=== PATIENT | male | born 1965 | race Caucasian/White ===

== ENCOUNTER 2018-09-03 22:11 | Emergency (ER) | payer OTHER ==
[~2018-09-03] VITALS: Ht 180.3 cm; Wt 126.1 kg
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
[2018-09-03 22:39] LABS: HEMOGLOBIN 14.4 G/DL (13.3-17.7); MEAN PLATELET VOLUME 10.5 FL (7.4-10.4); RED CELL DISTRIBUTION WIDTH 13.3 % (10.0-14.5); WHITE BLOOD COUNT 8.4 10^3/uL (4.3-11.0)
[2018-09-03 22:53] LABS: ALANINE AMINOTRANSFERASE 26 U/L (0-55); ALBUMIN 3.9 GM/DL (3.2-4.5); ALKALINE PHOSPHATASE 52 U/L (40-136); BILIRUBIN,DIRECT 0.2 MG/DL (0.0-0.3); BILIRUBIN,INDIRECT 0.2 MG/DL; BILIRUBIN,TOTAL 0.4 MG/DL (0.1-1.0); BUN/CREATININE RATIO 18; CALCIUM 8.9 MG/DL (8.5-10.1); CARBON DIOXIDE 19 MMOL/L (21-32); CHLORIDE 112 MMOL/L (98-107); CREATININE SERUM 0.84 MG/DL (0.60-1.30); GFR ESTIMATED > 60; GLUCOSE 92 MG/DL (70-105); POTASSIUM 3.8 MMOL/L (3.6-5.0); SODIUM 142 MMOL/L (135-145); TOTAL PROTEIN 6.4 GM/DL (6.4-8.2)
[2018-09-03] MEDS ORDERED: fentaNYL INJECTION 100 MCG/2 ML AMP IVP ONE ×2 (23:00→23:30)
[2018-09-03] MEDS ORDERED: RX-HYDROCODONE/APAP 5/325 MG #4 TAB PK PO PRN (23:30)
[2018-09-03] MEDS ORDERED: DIAZEPAM 5 MG (VALIUM) TABLET PO ONE (23:30)
[2018-09-03] MEDS ORDERED: HYDROcodone/APAP 5 MG/325 MG (LORTAB) TAB PO ONE (23:30)
[2018-09-03] MEDS ORDERED: TRAM-42 PO (23:40)
[2018-09-03] MEDS ORDERED: CYCL10TA9 PO (23:40)
[2018-09-03] MEDS ORDERED: METH4TAB PO (23:40)
[2018-09-04 00:25] LABS: BILIRUBIN,URINE NEGATIVE (NEGATIVE); CLARITY,URINE CLEAR; COLOR,URINE YELLOW; GLUCOSE, URINE (UA) NEGATIVE (NEGATIVE); KETONES,URINE NEGATIVE (NEGATIVE); LEUKOCYTE ESTERASE ,URINE NEGATIVE (NEGATIVE); NITRITE,URINE NEGATIVE (NEGATIVE); PH,URINE 5 (5-9); PROTEIN,URINE 1+ (NEGATIVE); UROBILINOGEN,URINE NORMAL (NORMAL)
[2018-09-04 00:31] LABS: BACTERIA,URINE TRACE /HPF; HYALINE CASTS, URINE RARE /LPF; SQUAMOUS EPITHELIAL CELL,UR RARE /HPF; WBC,URINE RARE /HPF
[2018-09-04 00:32] LABS: AMPHETAMINE SCREEN, URINE NEGATIVE (NEGATIVE); BARBITURATE SCREEN URINE NEGATIVE (NEGATIVE); BENZODIAZEPINES SCREEN URINE NEGATIVE (NEGATIVE); CANNABINOID SCREEN, URINE NEGATIVE (NEGATIVE); COCAINE SCREEN URINE NEGATIVE (NEGATIVE); METHADONE STAT NEGATIVE (NEGATIVE); METHAMPHETAMINE SCREEN URINE S NEGATIVE (NEGATIVE); OPIATE SCREEN URINE NEGATIVE (NEGATIVE); OXYCODONE STAT NEGATIVE (NEGATIVE); PROPOXYPHENE STAT NEGATIVE (NEGATIVE); TRICYCLIC ANTIDEPRESSANTS SCRE NEGATIVE (NEGATIVE)
[2018-09-04 06:04] VITALS: BP 130/81
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
== END 2018-09-04 00:45 | disposition home or self-care (01) ==
LOC: ER 22:13
DX: S09.90XA Unspecified injury of head, initial encounter (principal); S16.1XXA Strain of muscle, fascia and tendon at neck level, initial encounter; M54.2 Cervicalgia; G89.29 Other chronic pain; R40.2142 Coma scale, eyes open, spontaneous, at arrival to emergency department; R40.2252 Coma scale, best verbal response, oriented, at arrival to emergency department; R40.2362 Coma scale, best motor response, obeys commands, at arrival to emergency department; F17.210 Nicotine dependence, cigarettes, uncomplicated; Z79.52 Long term (current) use of systemic steroids; V47.6XXA Car passenger injured in collision with fixed or stationary object in traffic accident, initial encounter; Y92.410 Unspecified street and highway as the place of occurrence of the external cause
CPT/HCPCS: 36415; 70450; 71045; 72125; 72128; 72131; 72170; 80048; 80076; 80306; 80320; 81000; 85027

== ENCOUNTER → 2018-09-15 | Outpatient (CLI) | payer OTHER ==
[~2018-09-15] MED LIST: CYCL10TA9 PO; METH4TAB PO; TRAM-42 PO
--- NOTE | 2018-09-15 12:14 | Diagnostic Imaging Report ---
Indication: Low back pain and L1 compression fracture. Time of exam: 11:41 AM Correlation is made with CT of the thoracic and lumbar spine from 09/03/2018. Curvature is normal. Grade 1 spondylolisthesis of L5 on S1 is again seen. Chronic compression fracture deformity of the L1 vertebral body appears similar to the recent CT. Remaining lumbar vertebrae demonstrate normal stature. Disc spaces are fairly well-maintained apart from some degenerative disc disease L1-2 and L5-S1 levels. Pars defects at L5-S1 are again noted. Impression: Chronic compression fracture deformity at L1 with spondylolysis and spondylolisthesis of L5 on S1. This appears similar to CT study from 09/03/2018. Dictated by: Dictated on workstation # [id number]
== END ==
LOC: RAD FS 11:33
PROVIDERS: ATTEND Family Medicine
DX: M48.56XA Collapsed vertebra, not elsewhere classified, lumbar region, initial encounter for fracture (principal); M47.816 Spondylosis without myelopathy or radiculopathy, lumbar region; M43.17 Spondylolisthesis, lumbosacral region
CPT/HCPCS: 72100

== ENCOUNTER 2018-10-07 10:53 | Emergency (ER) | payer SELFPAY ==
[~2018-10-07] VITALS: Ht 180.3 cm; Wt 122.5 kg
--- NOTE | 2018-10-07 11:50 | Diagnostic Imaging Report ---
INDICATION: Shortness of breath. TIME OF EXAM: 11:19 AM Comparison is made with prior exam from 09/03/2018. FINDINGS: The heart size is normal. There may be minimal infiltrate or atelectasis in the left base. Otherwise lungs are clear. There is no effusion or pneumothorax. Pulmonary vascularity is normal. IMPRESSION: Minimal left base infiltrate or atelectasis. Dictated by: Dictated on workstation # [id number]
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
[2018-10-07 12:07] LABS: HEMATOCRIT 47 % (40-54); HEMOGLOBIN 15.4 G/DL (13.3-17.7); MEAN CORPUSCULAR HEMOGLOBIN 29 PG (25-34); MEAN CORPUSCULAR VOLUME 89 FL (80-99); WHITE BLOOD COUNT 16.7 10^3/uL (4.3-11.0)
[2018-10-07 12:08] LABS: BASOPHILS % (AUTO) 0 % (0-10); EOSINOPHILS % (AUTO) 1 % (0-10); LYMPHOCYTES # (AUTO) 2.4 X 10^3 (1.0-4.0); LYMPHOCYTES % (AUTO) 15 % (12-44); MEAN CORPUSCULAR HGB CONC 33 G/DL (32-36); MEAN PLATELET VOLUME 10.3 FL (7.4-10.4); MONOCYTES # (AUTO) 1.4 X 10^3 (0.0-1.0); MONOCYTES % (AUTO) 8 % (0-12); NEUTROPHILS # (AUTO) 12.6 X 10^3 (1.8-7.8); NEUTROPHILS % (AUTO) 76 % (42-75); PLATELET COUNT 349 10^3/uL (130-400); RED CELL DISTRIBUTION WIDTH 12.5 % (10.0-14.5)
[2018-10-07 12:09] LABS: BASOPHILS # (AUTO) 0.1 10^3/uL (0.0-0.1); EOSINOPHILS # (AUTO) 0.2 10^3/uL (0.0-0.3)
[2018-10-07 12:10] LABS: BUN/CREATININE RATIO 21; CALCIUM 9.5 MG/DL (8.5-10.1); CARBON DIOXIDE 21 MMOL/L (21-32); CHLORIDE 100 MMOL/L (98-107); GFR ESTIMATED > 60; GLUCOSE 133 MG/DL (70-105); POTASSIUM 4.1 MMOL/L (3.6-5.0); SODIUM 139 MMOL/L (135-145)
[2018-10-07 12:11] LABS: ALANINE AMINOTRANSFERASE 19 U/L (0-55); ALBUMIN 4.3 GM/DL (3.2-4.5); ALKALINE PHOSPHATASE 79 U/L (40-136); BILIRUBIN,TOTAL 0.6 MG/DL (0.1-1.0); TOTAL PROTEIN 7.9 GM/DL (6.4-8.2)
[2018-10-07] MEDS ORDERED: NAPR-1071 PO ×2 (12:13→12:21)
[2018-10-07] MEDS ORDERED: AMOX500C2 PO ×2 (12:13→12:21)
[2018-10-07 12:32] VITALS: BP 115/99
[2018-10-07 12:32] LABS: BAND NEUTROPHILS 4 %; LYMPHOCYTES % (MANUAL) 16 %; MONOCYTES % (MANUAL) 5 %; NEUTROPHILS % (MANUAL) 75 %; RBC MORPH NORMAL
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
== END 2018-10-07 12:32 | disposition home or self-care (01) ==
LOC: EDUNIT# 10:53 → ER FS 10:54
DX: J40 Bronchitis, not specified as acute or chronic (principal); S20.211D Contusion of right front wall of thorax, subsequent encounter; J98.11 Atelectasis; Z79.52 Long term (current) use of systemic steroids; Z98.890 Other specified postprocedural states; V89.2XXD Person injured in unspecified motor-vehicle accident, traffic, subsequent encounter
CPT/HCPCS: 36415; 71046; 80053; 83605; 85007; 85027; 87040

== ENCOUNTER 2019-06-25 20:09 | Emergency (ER) | payer SELFPAY ==
[~2019-06-25] VITALS: Ht 180.3 cm; Wt 126.6 kg
[~2019-06-25 20:09] MED LIST changes: +AMOX500C2 PO; +NAPR-1071 PO
--- NOTE | 2019-06-25 20:17 | ED Upper Extremity ---
General Stated Complaint: LEFT HAND INJURY Source: patient Exam Limitations: no limitations History of Present Illness Date Seen by Provider: Jun 25, 2019 Time Seen by Provider: 20:17 Initial Comments 53-year-old male presents to have his hand evaluated.y. Patient had a middle finger amputation revision done at the [facility] and [place]. Patient's re vision was 5 days ago and he had a drain tube placed.. Patient's drain tube came out today and he wanted to have it reevaluated since he was unable to contact his surgeon. Patient denies any other symptoms Allergies and Home Medications Allergies Coded Allergies: No Known Drug Allergies (Unverified , 09/03/18) Home Medications Albuterol Sulfate 2.5 Mg/3 Ml Vial.neb, 2.5 MG INH Q4H PRN for WHEEZING Prescribed by: NORA ZAPATA on 06/25/192054 Amoxicillin 500 Mg Capsule, 500 MG PO TID Prescribed by: MIMI VAUGHN on 10/07/18 1221 Cyclobenzaprine HCl 10 Mg Tablet, 10 MG PO Q8H Prescribed by: TWYLA VARGAS on 09/03/18 2340 Methylprednisolone 4 Mg Tab.ds.pk, 4 MG PO UD Prescribed by: TWYLA VARGAS on 09/03/18 234 Naproxen 500 Mg Tablet, 500 MG PO BID Prescribed by: MIMI VAUGHN on 10/07/18 1221 Tramadol HCl 50 Mg Tablet, 50 MG PO Q4H Prescribed by: TWYLA VARGAS on 09/03/18 2340 Patient Home Medication List Home Medication List Reviewed: Yes Review of Systems Constitutional: No chills, No fever Respiratory: dyspnea on exertion Cardiovascular: no symptoms reported Gastrointestinal: no symptoms reported Genitourinary: no symptoms reported Musculoskeletal: see HPI Skin: see HPI Past Agdpdbz-Jfsckb-Yhtyrk Hx Past Med/Social Hx: Reviewed Nursing Past Med/Soc Hx Patient Social History Type Used: Cigarettes 2nd Hand Smoke Exposure: No Recent Foreign Travel: No Contact w/Someone Who Travel: No Recent Hopitalizations: No Seasonal Allergies Seasonal Allergies: No Past Medical History Surgeries: Yes (BACK SURGERY; LEFT MIDDLE FINGER SURGERY) Orthopedic Respiratory: No Cardiac: No Neurological: No Genitourinary: No Gastrointestinal: Yes Ulcer Musculoskeletal: Yes Chronic Back Pain, Fractures Endocrine: No HEENT: No Cancer: No Psychosocial: No Integumentary: No Blood Disorders: No Physical Exam Vital Signs Vital Signs - First Documented 06/25/19 20:14 Temp 37.0 Pulse 104 Resp 30 B/P (MAP) 149/84 (105) Pulse Ox 95 O2 Delivery Room Air Capillary Refill : Height, Weight, BMI Height: 5'11.00" Weight: 270lbs. oz. 122.001558ck; 35.15 BMI Method:Stated General Appearance: other (patient noticeably short of breath with exertion.) HEENT: PERRL/EOMI Cardiovascular: normal peripheral pulses, regular rate, rhythm Respiratory: decreased breath sounds, wheezing Gastrointestinal: non tender, soft Neurologic/Psychiatric: alert, normal mood/affect, oriented x 3 Skin: other (patient with postop incision that is clean dry and intact. There is no obvious signs of infection. Patient is absent of his middle finger on the left.) Progress/Results/Core Measures Results/Orders My Orders Orders - NORA ZAPATA DO Albuterol/Ipra Inhalation Soln (Duoneb I (06/25/19 20:30) Svn Small Volume Nebulizer (06/25/19 20:23) Medications Given in ED Current Medications Medications Dose Ordered Sig/Rohit Route Start Time Stop Time Status Last Admin Dose Admin Albuterol/ Ipratropium 3 ml ONCE ONCE INH 06/25/19 20:30 06/25/19 20:31 DC 06/25/19 20:32 3 ML Vital Signs/I&O 06/25/19 20:14 Temp 37.0 Pulse 104 Resp 30 B/P (MAP) 149/84 (105) Pulse Ox 95 O2 Delivery Room Air Progress Progress Note : Time: 20:38 Progress Note Patient with no noticeable dyspnea with exertion. Patient states that this been gone for a long time. Patient agrees to allow me to give him a breathing treatment and a prescription for albuterol since he is wheezing. Patient does not want any further workup and will not provide any further information about his shortness of breath. Both nurse and I had multiple attempts to explain the workup. I had a long conversation with patient regarding need for outpatient follow-up for further evaluation. 2052 Patient breathing improved following breathing treatment however he was much more wheezier indicating some underlying bronchitis, reactive airway disease. Patient will not allow me to do any further treatment or workup. I will prescribe him an inhaler. I asked him to use it every 4 hours for 24 hours and follow-up with his primary care provider. Departure Impression Primary Impression: Encounter for wound re-check Additional Impressions: Wheezing HERNÁNDEZ (dyspnea on exertion) Disposition: 01 HOME, SELF-CARE Condition: Stable Departure-Patient Inst. Referrals: SHANEL HAQUE MD (PCP/Family) Primary Care Physician Patient Instructions: Shortness of Breath (Dyspnea) (DC) Add. Discharge Instructions: Please use an inhaler every 4 hours for 24 hours when awake Follow-up with orthopedic surgeon that did the surgery in 24-48 hours for recheck. Scripts Albuterol Sulfate (Albuterol Sulfate) 2.5 Mg/3 Ml Vial.neb 2.5 MG INH Q4H PRN for WHEEZING, #50 EA 1 Refill Prov: NORA ZAPATA DO 06/25/19 NORA ZAPATA DO Jun 25, 2019 20:17
[2019-06-25] MEDS ORDERED: RT-ALBUTEROL/IPRATROPIUM 3 ML (DUONEB) VIAL INH ONE (20:30)
--- NOTE | 2019-06-25 20:43 | NUR ---
This RN went into the patient room to disconnect him from the breathing treatment. Patient is still short of breath. This RN asked the patient if he would like us to look into his shortness of breath. This RN advised that his respiratory status is concerning and it would be recommended to find the issue. Patient states he just wants his hand looked at and that he doesn't want any additional testing.
[2019-06-25] MEDS ORDERED: ALBU2.5V4 INH (20:55)
[2019-06-25 20:58] VITALS: BP 140/92
--- NOTE | 2019-06-25 20:58 | NUR ---
This RN went to discharge patient. This RN asked the patient if he was sure that he didn't want us to look into his respiratory symptoms. Patient states that he doesn't want that done. This RN told patient to be sure to follow up with a doctor about his respiratory status because it was concerning.
== END 2019-06-25 20:58 | disposition home or self-care (01) ==
LOC: EDUNIT# 20:09 → ER FS 20:12
DX: S68.113D Complete traumatic metacarpophalangeal amputation of left middle finger, subsequent encounter (principal); R06.2 Wheezing; R06.09 Other forms of dyspnea; X58.XXXD Exposure to other specified factors, subsequent encounter
CPT/HCPCS: 99281

== ENCOUNTER 2020-01-27 10:20 | Emergency (ER) | payer SELFPAY ==
[~2020-01-27] VITALS: Ht 180.3 cm; Wt 127.0 kg
[~2020-01-27 10:20] MED LIST changes: +ALBU2.5V4 INH
[2020-01-27 10:56] LABS: BASOPHILS % (AUTO) 0 % (0-10); EOSINOPHILS # (AUTO) 0.2 10^3/uL (0.0-0.3); EOSINOPHILS % (AUTO) 2 % (0-10); HEMATOCRIT 46 % (40-54); LYMPHOCYTES # (AUTO) 2.1 X 10^3 (1.0-4.0); LYMPHOCYTES % (AUTO) 24 % (12-44); MEAN CORPUSCULAR HEMOGLOBIN 30 PG (25-34); MEAN CORPUSCULAR HGB CONC 33 G/DL (32-36); MEAN CORPUSCULAR VOLUME 90 FL (80-99); MEAN PLATELET VOLUME 9.9 FL (7.4-10.4); MONOCYTES # (AUTO) 0.7 X 10^3 (0.0-1.0); MONOCYTES % (AUTO) 8 % (0-12); NEUTROPHILS # (AUTO) 5.5 X 10^3 (1.8-7.8); NEUTROPHILS % (AUTO) 65 % (42-75); PLATELET COUNT 344 10^3/uL (130-400); WHITE BLOOD COUNT 8.5 10^3/uL (4.3-11.0)
[2020-01-27 10:59] LABS: ABG BASE EXCESS -0.9 MMOL/L (-2.5-2.5); ABG OXYGEN SATURATION 98 % (94-100); ABG PCO2 40 MMHG (35-45); ABG PH 7.38 (7.37-7.43); ABG PO2 100 MMHG (79-93); ABG TCO2 25.1 MMOL/L (21.0-31.0)
[2020-01-27 11:02] LABS: ALLENS TEST YES-POS; INSPIRED O2 ROOM AIR; PATIENT TEMP 95.8; VENTILATOR NO
--- NOTE | 2020-01-27 11:03 | ED Respiratory ---
General Chief Complaint: Respiratory Problems Stated Complaint: BLOOD CLOTS Source: patient (VERY POOR HISTORIAN) History of Present Illness Date Seen by Provider: Jan 27, 2020 Time Seen by Provider: 10:28 Initial Comments PT ARRIVES VIA POV--SENT HERE FROM [facility]--WANT PT CHECKED FOR P.E. C/O SHORTNESS OF BREATH HAS COPD, BUT STATES SHORTNESS OF BREATH HAS BEEN WORSE "FOR WHILE" --DIFFICULT TO GET ANY INFORMATION FROM PT, BUT EVENTUALLY STATES "A COUPLE OF MONTHS" STATES HE WAS HOSPITALIZED IN [place] "A COUPLE OF MONTHS AGO" "FOR THAT BREATHING STUFF" --HAS NO IDEA WHAT HE WAS DX WITH OR BEING TREATED FOR. ON DIRECT QUESTIONING, HE DOES STATE THAT HE WAS TESTED FOR COVID, BUT DOES NOT KNOW WHAT RESULTS WERE DENIES ANY CHANGE IN CHRONIC COUGH DENIES FEVER DENIES SWELLING IN LEGS/ FEET OR PAIN IN CALVES DOES ADMIT TO MID CHEST PAIN "BAD HEARTBURN" FOR THE LAST MONTH PT WAS STARTED ON STEROIDS 2 DAYS AGO, AND HAD A ROUND OF STEROIDS SOMETIME PRIOR TO THAT WELL REPORT FROM [facility] WAS THAT PT'S VITALS WERE STABLE, WITH O2 SAT 98% ON ROOM AIR. PT DOES NOT HAVE HOME O2 NO OTHER RELEVANT INFORMATION IS OBTAINABLE FROM PT PT STATES HE SMOKED 2 PPD, QUIT 10 YEARS AGO PCP: [facility] Allergies and Home Medications Allergies Coded Allergies: No Known Drug Allergies (Unverified , 09/03/18) Home Medications Albuterol Sulfate 2.5 Mg/3 Ml Vial.neb, 2.5 MG INH Q4H PRN for WHEEZING Prescribed by: NORA ZAPATA on 06/25/192054 Amoxicillin 500 Mg Capsule, 500 MG PO TID Prescribed by: MIMI VAUGHN on 10/07/18 1221 Cyclobenzaprine HCl 10 Mg Tablet, 10 MG PO Q8H Prescribed by: TWYLA VARGAS on 09/03/18 234 Methylprednisolone 4 Mg Tab.ds.pk, 4 MG PO UD Prescribed by: TWYLA VARGAS on 09/03/182339 Naproxen 500 Mg Tablet, 500 MG PO BID Prescribed by: MIMI VAUGHN on 10/07/18 1221 Tramadol HCl 50 Mg Tablet, 50 MG PO Q4H Prescribed by: TWYLA VARGAS on 09/03/18 234 Review of Systems Review of Systems Constitutional: No fever; other (VERY LIMITED INFORMATION FROM PT) Respiratory: cough, short of breath Cardiovascular: chest pain Past Uhmnmxy-Nbszat-Uaeynw Hx Past Med/Social Hx: Reviewed and Corrections made Patient Social History Alcohol Use: Denies Use Recreational Drug Use: No Smoking Status: Former Smoker (2 PPD, QUIT 10 YEARS AGO) Type Used: Cigarettes 2nd Hand Smoke Exposure: No Recent Foreign Travel: No Contact w/Someone Who Travel: No Recent Hopitalizations: No Immunizations Up To Date Tetanus Booster (TDap): Unknown PED Vaccines UTD: Yes Seasonal Allergies Seasonal Allergies: No Past Medical History Surgeries: Yes (BACK SURGERY; LEFT MIDDLE FINGER SURGERY) Orthopedic Respiratory: Yes COPD Cardiac: No Neurological: No Genitourinary: No Gastrointestinal: Yes Ulcer Musculoskeletal: Yes Chronic Back Pain, Fractures Endocrine: No HEENT: No Cancer: No Psychosocial: No Integumentary: No Blood Disorders: No Physical Exam Vital Signs - First Documented 01/27/20 10:25 Temp 35.4 Pulse 97 Resp 20 B/P (MAP) 141/92 (108) Pulse Ox 97 O2 Delivery Room Air Capillary Refill : Height: 5'11.00" Weight: 270lbs. oz. 122.463452tk; 38.00 BMI Method:Stated General Appearance: mild distress (MILD TO MODERATE DYSPNEA ON ARRIVAL, TALKS IN 3-5 WORD SENTENCES), obese HEENT: PERRL/EOMI Neck: normal inspection Respiratory: decreased breath sounds (IN BASES), other (MILD TO MODERATE DYSPNEA ON ARRIVAL) Cardiovascular: regular rate, rhythm, no murmur Gastrointestinal: non tender, soft Extremities: normal inspection, no pedal edema, no calf tenderness, normal capillary refill Neurologic/Psychiatric: no motor/sensory deficits, alert, oriented x 3 (BUT IS POOR HISTORIAN) Skin: normal color, warm/dry Progress/Results/Core Measures Suspected Sepsis SIRS Temperature: Pulse: Respiratory Rate: Laboratory Tests 01/27/20 10:40: White Blood Count 8.5 Blood Pressure / Mean: Laboratory Tests 01/27/20 10:40: Creatinine 0.86, INR Comment 0.9, Platelet Count 344, Total Bilirubin 0.3 Results/Orders Lab Results Laboratory Tests Test 01/27/20 10:38 01/27/20 10:40 Range/Units Blood Gas Puncture Site RT RAD Blood Gas Patient Temperature 95.8 Arterial Blood pH 7.38 7.37-7.43 Arterial Blood Partial Pressure CO2 40 35-45 MMHG Arterial Blood Partial Pressure O2 100 H 79-93 MMHG Arterial Blood HCO3 24 23-27 MMOL/L Arterial Blood Total CO2 25.1 21.0-31.0 MMOL/L Arterial Blood Oxygen Saturation 98 94-100 % Arterial Blood Base Excess -0.9 -2.5-2.5 MMOL/L David Test YES-POS Blood Gas Ventilator Setting NO Blood Gas Inspired Oxygen ROOM AIR White Blood Count 8.5 4.3-11.0 10^3/uL Red Blood Count 5.07 4.35-5.85 10^6/uL Hemoglobin 15.0 13.3-17.7 G/DL Hematocrit 46 40-54 % Mean Corpuscular Volume 90 80-99 FL Mean Corpuscular Hemoglobin 30 25-34 PG Mean Corpuscular Hemoglobin Concent 33 32-36 G/DL Red Cell Distribution Width 13.6 10.0-14.5 % Platelet Count 344 130-400 10^3/uL Mean Platelet Volume 9.9 7.4-10.4 FL Neutrophils (%) (Auto) 65 42-75 % Lymphocytes (%) (Auto) 24 12-44 % Monocytes (%) (Auto) 8 0-12 % Eosinophils (%) (Auto) 2 0-10 % Basophils (%) (Auto) 0 0-10 % Neutrophils # (Auto) 5.5 1.8-7.8 X 10^3 Lymphocytes # (Auto) 2.1 1.0-4.0 X 10^3 Monocytes # (Auto) 0.7 0.0-1.0 X 10^3 Eosinophils # (Auto) 0.2 0.0-0.3 10^3/uL Basophils # (Auto) 0.0 0.0-0.1 10^3/uL Prothrombin Time 12.7 12.2-14.7 SEC INR Comment 0.9 0.8-1.4 Activated Partial Thromboplast Time 35 24-35 SEC Sodium Level 141 135-145 MMOL/L Potassium Level 3.8 3.6-5.0 MMOL/L Chloride Level 109 H 98-107 MMOL/L Carbon Dioxide Level 23 21-32 MMOL/L Anion Gap 9 5-14 MMOL/L Blood Urea Nitrogen 11 7-18 MG/DL Creatinine 0.86 0.60-1.30 MG/DL Estimat Glomerular Filtration Rate > 60 BUN/Creatinine Ratio 13 Glucose Level 103 70-105 MG/DL Calcium Level 9.1 8.5-10.1 MG/DL Corrected Calcium 9.0 8.5-10.1 MG/DL Magnesium Level 2.1 1.6-2.4 MG/DL Total Bilirubin 0.3 0.1-1.0 MG/DL Aspartate Amino Transf (AST/SGOT) 20 5-34 U/L Alanine Aminotransferase (ALT/SGPT) 37 0-55 U/L Alkaline Phosphatase 64 40-136 U/L Total Creatine Kinase 121 30-200 U/L Creatine Kinase MB 2.2 <6.6 NG/ML Myoglobin 63.7 10.0-92.0 NG/ML Troponin I < 0.028 <0.028 NG/ML B-Type Natriuretic Peptide 18.9 <100.0 PG/ML Total Protein 6.9 6.4-8.2 GM/DL Albumin 4.1 3.2-4.5 GM/DL My Orders Orders - TWYLA VARGAS DO Ed Iv/Invasive Line Start (01/27/20 10:28) Ekg Tracing (01/27/20 10:28) Monitor-Rhythm Ecg Trace Only (01/27/20 10:28) BNP (01/27/20 10:28) Cbc With Automated Diff (01/27/20 10:28) Comprehensive Metabolic Panel (01/27/20 10:28) Creatine Kinase (01/27/20 10:28) Creatine Kinase Mb (01/27/20 10:28) Magnesium (01/27/20 10:28) Protime With Inr (01/27/20 10:28) Partial Thromboplastin Time (01/27/20 10:28) Myoglobin Serum (01/27/20 10:28) Troponin I (01/27/20 10:28) Arterial Blood Gas (01/27/20 10:34) Chest 1 View, Ap/Pa Only (01/27/20 10:34) Ct Angio Chest W (01/27/20 11:39) Iohexol Injection (Omnipaque 350 Mg/Ml 1 (01/27/20 11:45) Received Contrast (Hold Metformin- Contr (01/27/20 11:45) Sodium Chloride Flush (Catheter Flush Sy (01/27/20 11:45) Ns (Ivpb) (Sodium Chloride 0.9% Ivpb Bag (01/27/20 11:45) Medications Given in ED Current Medications Medications Dose Ordered Sig/Rohit Route Start Time Stop Time Status Last Admin Dose Admin Iohexol 100 ml ONCE ONCE IV 01/27/20 11:45 01/27/20 11:48 DC 01/27/20 12:05 88 ML Sodium Chloride 10 ml NEEDED PRN IV 01/27/20 11:45 01/27/20 12:05 10 ML Sodium Chloride 100 ml ONCE ONCE IV 01/27/20 11:45 01/27/20 11:48 DC 01/27/20 12:05 80 ML Vital Signs/I&O 01/27/20 10:25 Temp 35.4 Pulse 97 Resp 20 B/P (MAP) 141/92 (108) Pulse Ox 97 O2 Delivery Room Air Capillary Refill : Progress Note : Progress Note O2 SATS 96-98% ON ROOM AIR THROUGHOUT ER STAY VITAL STABLE ECG Initial ECG Impression Date: Jan 27, 2020 Initial ECG Impression Time: 10:35 Initial ECG Rate: 97 Initial ECG Rhythm: Normal Sinus (RBBB, LPFB) Initial ECG Comparisson: No Previous ECG Available Diagnostic Imaging Comments CXR--PER RADIOLOGIST REPORT AT 1218 The heart size is normal. The pulmonary vascularity is unremarkable. The lungs are clear apart from tiny nodules left chest consistent with granulomas. No infiltrate, effusion or pneumothorax is detected. IMPRESSION: No acute cardiopulmonary process is detected. CT CHEST ANGIOGRAM--PER RADIOLOGIST REPORT AT 1243 FINDINGS: Evaluation of the pulmonary arterial system is without thromboembolism. No filling defects are seen within central, lobar or segmental branches. Thoracic aorta is normal caliber. No dissection is identified. No pericardial or pleural fluid is identified. There is a nonspecific 8 mm nodule in right upper lobe anterolaterally image 70, series 2. Tiny subpleural nodule in right upper lobe, image 84, measures 3 mm. Slightly nodular density in the lingula measures 8 mm. Otherwise, lungs are clear. Upper abdomen is unremarkable. IMPRESSION: 1. No evidence of pulmonary neoplasm or thoracic aortic dissection. 2. Nonspecific subcentimeter pulmonary nodules. Follow-up in 6-12 months based on risk factors could be performed. No other significant abnormality is seen. Reviewed: Reviewed by Me Departure Impression Primary Impression: COPD (chronic obstructive pulmonary disease) Additional Impressions: Chronic dyspnea Pulmonary nodule seen on imaging study Disposition: HOME, SELF-CARE Condition: Stable Departure-Patient Inst. Referrals: GUALBERTO SOLANO PANKAJ K MD (PCP/Family) Primary Care Physician INES HERCULES MD Patient Instructions: Shortness of Breath (Dyspnea) (DC), Chronic Obstructive Pulmonary Disease (COPD) (DC), COPD Diet Add. Discharge Instructions: USE YOUR ALBUTEROL INHALER WITH SPACER--2 PUFFS EVERY 4 HOURS NEEDED FOR SHORTNESS OF BREATH TAKE 81 MG ASPIRIN DAILY FOLLOW UP WITH APPRENTICE MACHINIST OUTSIDE, DR. SOLANO, NEXT WEEK--CALL TODAY TO MAKE AN APPOINTMENT FOLLOW UP WITH SUPERINTENDENT MENAGERIE, DR. HERCULES, NEXT WEEK--CALL TODAY TO MAKE AN APPOINTMENT FOLLOW UP WITH [facility] NEEDED All discharge instructions reviewed with patient and/or family. Voiced understanding. Scripts Albuterol Sulfate (PROAIR HFA) 1 Puff Puff 2 PUFF IH Q4H, #1 EA 1 PUFF = 90 MCG---USE WITH SPACER AT ALL TIMES Prov: TWYLA VARGAS DO 01/27/20 Tiotropium [place] (Spiriva Respimat 1.25MCG/ACTUATION) 4 Gm Mist.inhal 2 PUFF IH DAILY, #1 EA Prov: TWYLA VARGAS DO 01/27/20 Fluticasone/Salmeterol (Advair 250-50 Diskus) 1 Each Blst.w.dev 1 EACH IH BID, #1 EA Prov: TWYLA VARGAS DO 01/27/20 TWYLA VARGAS DO Jan 27, 2020 11:03
[2020-01-27 11:10] LABS: ALBUMIN 4.1 GM/DL (3.2-4.5); CHLORIDE 109 MMOL/L (98-107); POTASSIUM 3.8 MMOL/L (3.6-5.0); SODIUM 141 MMOL/L (135-145)
[2020-01-27 11:11] LABS: CALCIUM 9.1 MG/DL (8.5-10.1)
[2020-01-27 11:12] LABS: GLUCOSE 103 MG/DL (70-105); TOTAL PROTEIN 6.9 GM/DL (6.4-8.2)
[2020-01-27 11:13] LABS: CARBON DIOXIDE 23 MMOL/L (21-32)
[2020-01-27 11:14] LABS: BILIRUBIN,TOTAL 0.3 MG/DL (0.1-1.0)
[2020-01-27 11:16] LABS: ALKALINE PHOSPHATASE 64 U/L (40-136); CREATININE SERUM 0.86 MG/DL (0.60-1.30); GFR ESTIMATED > 60; INR 0.9 (0.8-1.4); PROTHROMBIN TIME PATIENT 12.7 SEC (12.2-14.7)
[2020-01-27 11:17] LABS: BUN/CREATININE RATIO 13
[2020-01-27 11:19] LABS: ALANINE AMINOTRANSFERASE 37 U/L (0-55); MAGNESIUM 2.1 MG/DL (1.6-2.4)
[2020-01-27 11:20] LABS: CREATINE KINASE 121 U/L (30-200)
[2020-01-27 11:33] LABS: CREATINE KINASE MB 2.2 NG/ML (<6.6)
[2020-01-27] MEDS ORDERED: NS 100 ML (IVPB) BAG IV ONE (11:45)
[2020-01-27] MEDS ORDERED: CATHETER FLUSH 10 ML SYR IV PRN (11:45)
[2020-01-27] MEDS ORDERED: IOHEXOL 350 MG/ML 100 ML (OMNIPAQUE 350) VIAL IV ONE (11:45)
[2020-01-27] MEDS ORDERED: HOLD METFORMIN - RECEIVED CONTRAST 20 ML VIAL IV SCH (11:45)
--- NOTE | 2020-01-27 11:49 | Diagnostic Imaging Report ---
INDICATION: Shortness of air. TIME OF EXAM: 11:21 AM CORRELATION is made with prior chest from 10/07/2018. The heart size is normal. The pulmonary vascularity is unremarkable. The lungs are clear apart from tiny nodules left chest consistent with granulomas. No infiltrate, effusion or pneumothorax is detected. IMPRESSION: No acute cardiopulmonary process is detected. Dictated by: Dictated on workstation # [id number]
--- NOTE | 2020-01-27 12:26 | Diagnostic Imaging Report ---
PROCEDURE: CT angiography of the chest with contrast. TECHNIQUE: Multiple contiguous axial images were obtained through the chest after uneventful bolus administration of intravenous contrast. 3D reconstructed CTA MIP acquisitions were also performed. Auto Exposure Controls were utilized during the CT exam to meet ALARA standards for radiation dose reduction. INDICATION: Shortness of air. COMPARISON: No prior studies are available for comparison. FINDINGS: Evaluation of the pulmonary arterial system is without thromboembolism. No filling defects are seen within central, lobar or segmental branches. Thoracic aorta is normal caliber. No dissection is identified. No pericardial or pleural fluid is identified. There is a nonspecific 8 mm nodule in right upper lobe anterolaterally image 70, series 2. Tiny subpleural nodule in right upper lobe, image 84, measures 3 mm. Slightly nodular density in the lingula measures 8 mm. Otherwise, lungs are clear. Upper abdomen is unremarkable. IMPRESSION: 1. No evidence of pulmonary neoplasm or thoracic aortic dissection. 2. Nonspecific subcentimeter pulmonary nodules. Follow-up in 6-12 months based on risk factors could be performed. No other significant abnormality is seen. Dictated by: Dictated on workstation # [id number]
[2020-01-27] MEDS ORDERED: FLUT1DIS26 IH (13:10)
[2020-01-27] MEDS ORDERED: RT-ALBUINH IH (13:10)
[2020-01-27] MEDS ORDERED: TIOT4MIS5 IH (13:10)
[2020-01-27 13:31] VITALS: BP 133/83
== END 2020-01-27 13:31 | disposition home or self-care (01) ==
LOC: EDUNIT# 10:20 → ER 10:22
DX: J44.9 Chronic obstructive pulmonary disease, unspecified (principal); R06.09 Other forms of dyspnea; R91.8 Other nonspecific abnormal finding of lung field; E66.9 Obesity, unspecified; Z68.38 Body mass index [BMI] 38.0-38.9, adult; Z87.891 Personal history of nicotine dependence; Z79.52 Long term (current) use of systemic steroids
CPT/HCPCS: 36415; 71045; 71275; 80053; 82550; 82553; 82805; 83735; 83874; 83880; 84484; 85025; 85610; 85730; 93005; 93041

== ENCOUNTER → 2020-04-11 | Outpatient (CLI) | payer SELFPAY ==
[~2020-04-11] MED LIST changes: +FLUT1DIS26 IH; +RT-ALBUINH IH; +TIOT4MIS5 IH
== END ==
LOC: LABNPT 06:28
DX: R06.02 Shortness of breath (principal); G47.19 Other hypersomnia; Z53.9 Procedure and treatment not carried out, unspecified reason

== ENCOUNTER 2020-07-06 08:10 | Outpatient (CLI) | payer SELFPAY ==
[~2020-07-06] VITALS: Ht 180.3 cm; Wt 131.8 kg
[2020-07-06 08:03] VITALS: BP 141/93
[2020-07-06] MEDS ORDERED: BAMLANIVIMAB (NON FORM) 700 MG in NS (IVPB) 100 ML IV ONE (08:15)
[2020-07-06] MEDS ORDERED: EPINEPHrine INJECTION 1 MG/ML AMP IM PRN (08:15)
[2020-07-06] MEDS ORDERED: diphenhydrAMINE 50 MG/ML INJ (BENADRYL) IV PRN (08:15)
[2020-07-06 09:45] VITALS: BP 114/70
== END 2020-07-06 10:00 | disposition home or self-care (01) ==
LOC: INFUSION 08:10
PROVIDERS: ATTEND Nurse Practitioner Family
DX: Z23 Encounter for immunization (principal); U07.1 COVID-19

== ENCOUNTER 2020-07-16 14:11 | Inpatient (IN) | payer BC, OTHER ==
[~2020-07-16] VITALS: Ht 180.3 cm; Wt 129.6 kg
--- NOTE | 2020-07-16 14:16 | ED Cough/URI ---
General Source: patient History of Present Illness Date Seen by Provider: Jul 16, 2020 Time Seen by Provider: 14:16 Initial Comments 54-year-old male presents with some shortness of breath, left-sided chest tightness and pain. Patient reports that he was diagnosed with Covid 10 days ago or longer. He does not remember when his symptoms actually started. Patient did receive Bham nonclonal antibody infusion last week. Patient reports a history of COPD with prior symptoms of shortness of breath and wheezing that are similar to this. No reports of fever or chills at this time. Patient had presented to his primary care provider's office but then was sent over here due to some shortness of breath, concern for low oxygen and increased heart rate. Patient reports the chest pain has been going on for 3 to 4 days. Feels like there is a "knot in his chest wall. Gets worse with palpation or deep breath. Allergies and Home Medications Allergies Coded Allergies: No Known Drug Allergies (Unverified , 09/03/18) Home Medications Albuterol Sulfate 2.5 Mg/3 Ml Vial.neb, 2.5 MG INH Q4H PRN for WHEEZING Prescribed by: NORA ZAPATA on 06/25/192054 Albuterol Sulfate 1 Puff Puff, 2 PUFF IH Q4H 1 PUFF = 90 MCG---USE WITH SPACER AT ALL TIMES Prescribed by: TWYLA VARGAS on 01/27/20 1310 Amoxicillin 500 Mg Capsule, 500 MG PO TID Prescribed by: MIMI VAUGHN on 10/07/18 1221 Cyclobenzaprine HCl 10 Mg Tablet, 10 MG PO Q8H Prescribed by: TWYLA VARGAS on 09/03/18 2340 Fluticasone/Salmeterol 1 Each Blst.w.dev, 1 EACH IH BID Prescribed by: TWYLA VARGAS on 01/27/20 1310 Methylprednisolone 4 Mg Tab.ds.pk, 4 MG PO UD Prescribed by: TWYLA VARGAS on 09/03/18 234 Naproxen 500 Mg Tablet, 500 MG PO BID Prescribed by: MIMI VAUGHN on 10/07/18 1221 Tiotropium [place] 4 Gm Mist.inhal, 2 PUFF IH DAILY Prescribed by: TWYLA VARGAS on 01/27/20 1310 Tramadol HCl 50 Mg Tablet, 50 MG PO Q4H Prescribed by: TWYLA VARGAS on 09/03/18 0796 Patient Home Medication List Home Medication List Reviewed: Yes Review of Systems Review of Systems Constitutional: No chills, No fever Respiratory: cough, short of breath Cardiovascular: chest pain Gastrointestinal: no symptoms reported Genitourinary: no symptoms reported Musculoskeletal: no symptoms reported Skin: no symptoms reported Psychiatric/Neurological: No Symptoms Reported Hematologic/Lymphatic: No Symptoms Reported Immunological/Allergic: no symptoms reported Past Ggyzbrp-Pfshlv-Phxbey Hx Past Med/Social Hx: Reviewed Nursing Past Med/Soc Hx Patient Social History Type Used: Cigarettes 2nd Hand Smoke Exposure: No Recent Hopitalizations: No Immunizations Up To Date Tetanus Booster (TDap): Unknown PED Vaccines UTD: Yes Seasonal Allergies Seasonal Allergies: No Past Medical History Surgeries: Yes (BACK SURGERY; LEFT MIDDLE FINGER SURGERY) Orthopedic Respiratory: Yes COPD Cardiac: No Neurological: No Genitourinary: No Gastrointestinal: Yes Ulcer Musculoskeletal: Yes Chronic Back Pain, Fractures Endocrine: No HEENT: No Cancer: No Psychosocial: No Integumentary: No Blood Disorders: No Physical Exam Vital Signs - First Documented 07/16/20 07/16/20 14:48 19:24 Temp 37.8 Pulse 127 Resp 32 B/P (MAP) 110/93 (99) Pulse Ox 95 O2 Delivery Room Air Capillary Refill : Height: 5'11.00" Weight: 270lbs. oz. 122.244730ka; 39.00 BMI Method:Stated General Appearance: mild distress HEENT: PERRL/EOMI Neck: supple, normal inspection Respiratory: decreased breath sounds, wheezing (mild diffuse ) Cardiovascular: normal peripheral pulses, tachycardia Gastrointestinal: non tender, soft Neurologic/Psychiatric: alert, normal mood/affect, oriented x 3 Skin: normal color, warm/dry Lymphatic: no adenopathy Focused Exam Lactate Level Lactic Acid Level Laboratory Tests Test 07/16/20 14:33 07/16/20 16:35 07/16/20 18:30 Lactic Acid Level 2.13 MMOL/L (0.50-2.00) *H 2.23 MMOL/L (0.50-2.00) *H 2.23 MMOL/L (0.50-2.00) *H Progress/Results/Core Measures Suspected Sepsis SIRS Temperature: Pulse: Respiratory Rate: Laboratory Tests 07/16/20 14:33: White Blood Count 12.5H Blood Pressure / Mean: Laboratory Tests 07/16/20 14:33: Creatinine 0.81, INR Comment 0.9, Platelet Count 395, Total Bilirubin 0.4 Results/Orders Lab Results Laboratory Tests Test 07/16/20 14:33 07/16/20 16:35 07/16/20 18:30 Range/Units White Blood Count 12.5 H 4.3-11.0 10^3/uL Red Blood Count 5.88 H 4.35-5.85 10^6/uL Hemoglobin 17.0 13.3-17.7 G/DL Hematocrit 51 40-54 % Mean Corpuscular Volume 87 80-99 FL Mean Corpuscular Hemoglobin 29 25-34 PG Mean Corpuscular Hemoglobin Concent 33 32-36 G/DL Red Cell Distribution Width 13.0 10.0-14.5 % Platelet Count 395 130-400 10^3/uL Mean Platelet Volume 9.9 7.4-10.4 FL Immature Granulocyte % (Auto) 1 % Neutrophils (%) (Auto) 74 42-75 % Lymphocytes (%) (Auto) 17 12-44 % Monocytes (%) (Auto) 6 0-12 % Eosinophils (%) (Auto) 2 0-10 % Basophils (%) (Auto) 0 0-10 % Neutrophils # (Auto) 9.3 H 1.8-7.8 X 10^3 Lymphocytes # (Auto) 2.2 1.0-4.0 X 10^3 Monocytes # (Auto) 0.7 0.0-1.0 X 10^3 Eosinophils # (Auto) 0.2 0.0-0.3 10^3/uL Basophils # (Auto) 0.0 0.0-0.1 10^3/uL Immature Granulocyte # (Auto) 0.1 0.0-0.1 10^3/uL Prothrombin Time 11.9 L 12.2-14.7 SEC INR Comment 0.9 0.8-1.4 Activated Partial Thromboplast Time 30 24-35 SEC D-Dimer 0.25 0.00-0.49 UG/ML Sodium Level 136 135-145 MMOL/L Potassium Level 4.2 3.6-5.0 MMOL/L Chloride Level 104 98-107 MMOL/L Carbon Dioxide Level 22 21-32 MMOL/L Anion Gap 10 5-14 MMOL/L Blood Urea Nitrogen 14 7-18 MG/DL Creatinine 0.81 0.60-1.30 MG/DL Estimat Glomerular Filtration Rate > 60 BUN/Creatinine Ratio 17 Glucose Level 141 H 70-105 MG/DL Lactic Acid Level 2.13 *H 2.23 *H 2.23 *H 0.50-2.00 MMOL/L Calcium Level 9.5 8.5-10.1 MG/DL Corrected Calcium 9.7 8.5-10.1 MG/DL Total Bilirubin 0.4 0.1-1.0 MG/DL Aspartate Amino Transf (AST/SGOT) 17 5-34 U/L Alanine Aminotransferase (ALT/SGPT) 27 0-55 U/L Alkaline Phosphatase 78 40-136 U/L Troponin I < 0.30 <0.30 NG/ML C-Reactive Protein 1.26 H <0.50 MG/DL Total Protein 6.9 6.4-8.2 GM/DL Albumin 3.8 3.2-4.5 GM/DL My Orders Orders - ZAPATA,NORA L DO Vital Signs: Every 4 Hours (Or (07/16/20 14:23) Monitor-Rhythm Ecg Trace Only (07/16/20 14:23) Cbc With Automated Diff (07/16/20 14:23) Comprehensive Metabolic Panel (07/16/20 14:23) Crp Fs (07/16/20 14:23) Troponin I Fs (07/16/20 14:23) Lactic Acid Analyzer (07/16/20 14:23) Protime With Inr (07/16/20 14:23) Partial Thromboplastin Time (07/16/20 14:23) Ekg Tracing (07/16/20 14:23) Lactated Ringers (Lr 1000 Ml Iv Solution (07/16/20 14:30) Albuterol/Ipra Inhalation Soln (Duoneb I (07/16/20 14:30) Chest 1 View Ap/Pa Only (07/16/20 14:23) Fibrin Degradation Products (07/16/20 14:31) Ketorolac Injection (Toradol Injection) (07/16/20 15:02) Albuterol Pre-Mix Nebs (Rt) (Proventil (07/16/20 15:11) Methylprednisolone Sod Succ (Solu-Medrol (07/16/20 15:11) Svn Small Volume Nebulizer (07/16/20 15:11) Orphenadrine Inj (Ed Only) (Norflex Inje (07/16/20 15:16) Ekg Tracing (07/16/20 15:41) Ct Angio Chest W (07/16/20 15:51) Fentanyl Injection (Sublimaze Injection (07/16/20 15:54) Iohexol Injection (Omnipaque 350 Mg/Ml 1 (07/16/20 16:30) Received Contrast (Hold Metformin- Contr (07/16/20 16:30) Sodium Chloride Flush (Catheter Flush Sy (07/16/20 16:30) Ns (Ivpb) (Sodium Chloride 0.9% Ivpb Bag (07/16/20 16:30) Albuterol/Ipra Inhalation Soln (Duoneb I (07/16/20 18:00) Svn Small Volume Nebulizer (07/16/20 17:49) Ua Culture If Indicated (07/16/20 18:04) Blood Culture (07/16/20 18:04) Influenza A And B Antigens (07/16/20 18:04) Sputum Culture (07/16/20 18:04) Ed Iv/Invasive Line Start (07/16/20 18:04) Ns Iv 1000 Ml (Sodium Chloride 0.9%) (07/16/20 18:15) Cefepime Injection (Maxipime Injection) (07/16/20 18:15) Medications Given in ED Vital Signs/I&O 07/16/20 07/16/20 14:48 19:24 Temp 37.8 36.8 Pulse 127 119 Resp 32 26 B/P (MAP) 110/93 (99) 126/65 Pulse Ox 95 94 O2 Delivery Room Air Capillary Refill : Progress Note : Progress Note Patient remains slightly tachycardic despite treatment for COPD, fentanyl for chest wall pain, IV fluids. His lactic remains slightly elevated at 2.13, 2.23. Patient with no obvious signs of infection. Patient had negative CTA chest, negative chest x-ray, white count was slightly elevated. Patient was placed on oxygen which made no difference in his tachycardia so it was removed. His O2 saturations remained in the 94-97 percentile without oxygen. Patient will be admitted to Dr. Calab[facility] for further inpatient evaluation and work-up. ECG Initial ECG Impression Date: Jul 16, 2020 Initial ECG Impression Time: 14:24 Initial ECG Rate: 122 Initial ECG Rhythm: S.Tach Initial ECG Impression: Nonspecific Changes Comment sinus tach, no acute changes Diagnostic Imaging Diagonstic Imaging: Xray Plain Films/CT/US/NM/MRI: chest Comments [facility], [place], [place] NAME: EULOGIO CALI [facility] REC#: [id number] PT STATUS: REG ER : 1965 PHYSICIAN: NORA ZAPATA DO ADMIT DATE: 07/16/20/ER FS Signed Date of Exam:07/16/20 CHEST 1 VIEW AP/PA ONLY Indication: Covid infection and dyspnea Portable PA view of the chest is obtained with comparison made study of 01/27/2020 FINDINGS: Heart size and pulmonary vascularity are within normal limits, and the lungs are clear, bilaterally. IMPRESSION: Unremarkable chest. Departure Communication (Admissions) Time/Spoke to Admitting Phy: 18:[address] Calabrese. She will accept patient for placement in the ICU. We will give her 1 g of cefepime. We will do blood culture, urine culture. Patient stable will be transreferred for admission to [facility] Impression Primary Impression: COPD (chronic obstructive pulmonary disease) Qualified Codes: J44.9 - Chronic obstructive pulmonary disease, unspecified Additional Impressions: Tachycardia Chest pain Qualified Codes: R07.9 - Chest pain, unspecified Disposition: 30 STILL A PATIENT Condition: Stable Admissions Decision to Admit Reason: Admit from ER (General) Decision to Admit/Date: Jul 16, 2020 Time/Decision to Admit Time: 18:00 Departure-Patient Inst. Referrals: SHANEL HAQUE MD (PCP/Family) Primary Care Physician NORA ZAPATA DO Jul 16, 2020 14:16
[2020-07-16] MEDS ORDERED: LACTATED RINGERS 1,000 ML IV SCH (14:30)
[2020-07-16] MEDS ORDERED: RT-ALBUTEROL/IPRATROPIUM 3 ML (DUONEB) VIAL IH PRN (14:30)
[2020-07-16 14:42] LABS: BASOPHILS % (AUTO) 0 % (0-10); EOSINOPHILS % (AUTO) 2 % (0-10); HEMATOCRIT 51 % (40-54); LYMPHOCYTES % (AUTO) 17 % (12-44); MEAN CORPUSCULAR HEMOGLOBIN 29 PG (25-34); MEAN CORPUSCULAR HGB CONC 33 G/DL (32-36); MEAN CORPUSCULAR VOLUME 87 FL (80-99); MEAN PLATELET VOLUME 9.9 FL (7.4-10.4); MONOCYTES % (AUTO) 6 % (0-12); NEUTROPHILS % (AUTO) 74 % (42-75); PLATELET COUNT 395 10^3/uL (130-400); WHITE BLOOD COUNT 12.5 10^3/uL (4.3-11.0)
[2020-07-16 14:43] LABS: EOSINOPHILS # (AUTO) 0.2 10^3/uL (0.0-0.3); LYMPHOCYTES # (AUTO) 2.2 X 10^3 (1.0-4.0); MONOCYTES # (AUTO) 0.7 X 10^3 (0.0-1.0); NEUTROPHILS # (AUTO) 9.3 X 10^3 (1.8-7.8)
--- NOTE | 2020-07-16 14:48 | Diagnostic Imaging Report ---
Indication: Covid infection and dyspnea Portable PA view of the chest is obtained with comparison made study of 01/27/2020 FINDINGS: Heart size and pulmonary vascularity are within normal limits, and the lungs are clear, bilaterally. IMPRESSION: Unremarkable chest. Dictated by: Dictated on workstation # [id number]
[2020-07-16] MEDS ORDERED: KETOROLAC 30 MG/ML VIAL IVP STA (15:02)
[2020-07-16 15:04] LABS: FIBRIN DEGRADATION PRODUCTS 0.25 UG/ML (0.00-0.49); INR 0.9 (0.8-1.4); PROTHROMBIN TIME PATIENT 11.9 SEC (12.2-14.7)
[2020-07-16 15:06] LABS: SODIUM 136 MMOL/L (135-145)
[2020-07-16 15:07] LABS: ALANINE AMINOTRANSFERASE 27 U/L (0-55); ALBUMIN 3.8 GM/DL (3.2-4.5); ALKALINE PHOSPHATASE 78 U/L (40-136); BILIRUBIN,TOTAL 0.4 MG/DL (0.1-1.0); BUN/CREATININE RATIO 17; CALCIUM 9.5 MG/DL (8.5-10.1); CARBON DIOXIDE 22 MMOL/L (21-32); CHLORIDE 104 MMOL/L (98-107); CREATININE SERUM 0.81 MG/DL (0.60-1.30); GFR ESTIMATED > 60; GLUCOSE 141 MG/DL (70-105); POTASSIUM 4.2 MMOL/L (3.6-5.0); TOTAL PROTEIN 6.9 GM/DL (6.4-8.2)
[2020-07-16] MEDS ORDERED: RT-ALBUTEROL SULF 2.5 MG/3 ML PRE-MIX VIAL INH STA (15:11)
[2020-07-16] MEDS ORDERED: methylPREDNISolone 125 MG (Solu-MEDROL) VIAL IV STA (15:11)
[2020-07-16] MEDS ORDERED: ORPHENADRINE 60 MG/2 ML (NORFLEX) AMP (ED ONLY) IV STA (15:16)
[2020-07-16] MEDS ORDERED: fentaNYL INJECTION 100 MCG/2 ML AMP IVP STA (15:54)
[2020-07-16] MEDS ORDERED: NS 100 ML (IVPB) BAG IV ONE (16:30)
[2020-07-16] MEDS ORDERED: IOHEXOL 350 MG/ML 150 ML (OMNIPAQUE 350) VIAL IV ONE (16:30)
[2020-07-16] MEDS ORDERED: HOLD METFORMIN - RECEIVED CONTRAST 20 ML VIAL IV SCH (16:30)
[2020-07-16] MEDS ORDERED: CATHETER FLUSH 10 ML SYR IV PRN ×2 (16:30→20:30)
--- NOTE | 2020-07-16 17:38 | Diagnostic Imaging Report ---
PROCEDURE: CT angiography of the chest with contrast. TECHNIQUE: Multiple contiguous axial images were obtained through the chest after uneventful bolus administration of intravenous contrast. 3D reconstructed CTA MIP acquisitions were also performed. Auto Exposure Controls were utilized during the CT exam to meet ALARA standards for radiation dose reduction. DATE: July 16, 2020. COMPARISON: Chest radiograph July 162020. CT chest January 27, 2020. INDICATION: 54-year-old male, chest pain, shortness of breath, tachycardia. History of Covid 19 infection 14 days ago. FINDINGS: There is a right upper lobe pulmonary nodule on axial image 70 which measures 8 mm in size. This is unchanged since at least January 27, 2020. There is respiratory motion artifact. There is mild upper lobe predominant emphysema. There is no new or enlarging pulmonary nodule. There is no otherwise noted focal airspace consolidation. There is no pneumothorax. There is no pleural effusion. There is no identified central or segmental pulmonary embolus. There is limited evaluation for subsegmental pulmonary emboli given degree of motion artifact and timing of the contrast bolus. The main pulmonary artery is normal in caliber. The heart is not enlarged. There is no pericardial effusion. There is no identified abnormally enlarged mediastinal, hilar, or axillary lymph node meeting CT size criteria for adenopathy. The imaged portions of the upper abdomen are unremarkable in appearance. There are degenerative changes of the spine. There are remote prior healed right rib deformities. There is no identified acute bony abnormality. IMPRESSION: CT CHEST. 1. No identified central or segmental pulmonary embolus. Limited assessment for subsegmental pulmonary emboli given respiratory motion artifact and timing of the contrast bolus. 2. No otherwise identified acute cardiopulmonary abnormality. 3. Stable 8 mm right upper lobe pulmonary nodule since at least January 27, 2020. Continued follow-up CT chest without contrast in one year to document continued stability is recommended. 4. Very mild upper lobe predominant findings of emphysema. Dictated by: Dictated on workstation # [id number]
[2020-07-16] MEDS ORDERED: RT-ALBUTEROL/IPRATROPIUM 3 ML (DUONEB) VIAL INH ONE (18:00)
[2020-07-16] MEDS ORDERED: NS IV 1000 ML 1,000 ML IV SCH (18:15)
[2020-07-16] MEDS ORDERED: CEFEPIME INJECTION 1,000 MG in WATER (STERILE) FOR INJECTION 10 ML IV ONE (18:15)
[2020-07-16] MEDS: NS IV 1000 ML 1,000 ML IV SCH (20:24)
[2020-07-16] MEDS ORDERED: RT-ALBUTEROL SULF 2.5 MG/3 ML PRE-MIX VIAL IH PRN (20:30)
[2020-07-16] MEDS ORDERED: RT-ALBUTEROL/IPRATROPIUM 3 ML (DUONEB) VIAL IH SCH (21:00)
[2020-07-16] MEDS ORDERED: ACETAMINOPHEN 325 MG TABLET ONE (22:38)
[2020-07-16] MEDS: ACETAMINOPHEN 325 MG TABLET PO PRN (23:15)
[2020-07-17 03:03] LABS: BASOPHILS % (AUTO) 0 % (0-10); EOSINOPHILS % (AUTO) 0 % (0-10); HEMATOCRIT 46 % (40-54); HEMOGLOBIN 15.2 g/dL (13.3-17.7); LYMPHOCYTES # (AUTO) 1.1 10^3/uL (1.0-4.0); LYMPHOCYTES % (AUTO) 7 % (12-44); MEAN CORPUSCULAR HEMOGLOBIN 29 pg (25-34); MEAN CORPUSCULAR HGB CONC 33 g/dL (32-36); MEAN CORPUSCULAR VOLUME 89 fL (80-99); MEAN PLATELET VOLUME 9.8 fL (9.0-12.2); MONOCYTES # (AUTO) 0.4 10^3/uL (0.0-1.0); MONOCYTES % (AUTO) 3 % (0-12); NEUTROPHILS # (AUTO) 14.4 10^3/uL (1.8-7.8); NEUTROPHILS % (AUTO) 90 % (42-75); PLATELET COUNT 331 10^3/uL (130-400); WHITE BLOOD COUNT 16.1 10^3/uL (4.3-11.0)
[2020-07-17 03:21] LABS: ALBUMIN 3.7 GM/DL (3.2-4.5); CHLORIDE 103 MMOL/L (98-107); POTASSIUM 4.6 MMOL/L (3.6-5.0); SODIUM 135 MMOL/L (135-145)
[2020-07-17 03:22] LABS: CALCIUM 8.9 MG/DL (8.5-10.1)
[2020-07-17 03:23] LABS: GLUCOSE 131 MG/DL (70-105)
[2020-07-17 03:24] LABS: TOTAL PROTEIN 6.4 GM/DL (6.4-8.2)
[2020-07-17 03:25] LABS: BILIRUBIN,TOTAL 0.4 MG/DL (0.1-1.0); CARBON DIOXIDE 20 MMOL/L (21-32)
[2020-07-17 03:27] LABS: ALKALINE PHOSPHATASE 53 U/L (40-136); CREATININE SERUM 0.94 MG/DL (0.60-1.30); GFR ESTIMATED > 60; PHOSPHORUS 2.5 MG/DL (2.3-4.7)
[2020-07-17 03:28] LABS: BUN/CREATININE RATIO 17
[2020-07-17 03:30] LABS: ALANINE AMINOTRANSFERASE 28 U/L (0-55); MAGNESIUM 1.9 MG/DL (1.6-2.4)
[2020-07-17 03:35] LABS: BAND NEUTROPHILS 2 %; LYMPHOCYTES % (MANUAL) 5 %; MONOCYTES % (MANUAL) 4 %; NEUTROPHILS % (MANUAL) 89 %
[2020-07-17 03:36] LABS: RBC MORPH NORMAL
[2020-07-17] MEDS: NS IV 1000 ML 1,000 ML IV SCH (05:02)
[2020-07-17] MEDS: KCL 20 MEQ TAB (K-DUR) PO SCH (05:12)
[2020-07-17] MEDS: POTASSIUM CL 10MEQ/50ML IVPB 50 ML IV SCH (05:12)
[2020-07-17] MEDS: MAGNESIUM 1 GM/100 ML IVPB 100 ML IV SCH (05:12)
--- NOTE | 2020-07-17 06:26 | Pulmonary Consultation ---
History of Present Illness History of Present Illness Date Seen by Provider: Jul 17, 2020 Time Seen by Provider: 06:20 Date of Admission Allergies and Home Medications Allergies Coded Allergies: No Known Drug Allergies (Unverified , 09/03/18) Home Medications Albuterol Sulfate 2.5 Mg/3 Ml Vial.neb, 2.5 MG INH Q4H PRN for WHEEZING Prescribed by: NORA ZAPATA on 06/25/192054 Albuterol Sulfate 1 Puff Puff, 2 PUFF IH Q4H 1 PUFF = 90 MCG---USE WITH SPACER AT ALL TIMES Prescribed by: TWYLA VARGAS on 01/27/20 1310 Amoxicillin 500 Mg Capsule, 500 MG PO TID Prescribed by: MIMI VAUGHN on 10/07/18 1221 Cyclobenzaprine HCl 10 Mg Tablet, 10 MG PO Q8H Prescribed by: TWYLA VARGAS on 09/03/18 234 Fluticasone/Salmeterol 1 Each Blst.w.dev, 1 EACH IH BID Prescribed by: TWYLA VRAGAS on 01/27/20 1310 Methylprednisolone 4 Mg Tab.ds.pk, 4 MG PO UD Prescribed by: TWYLA VARGAS on 09/03/18 2340 Naproxen 500 Mg Tablet, 500 MG PO BID Prescribed by: MIMI VAUGHN on 10/07/18 1221 Tiotropium [place] 4 Gm Mist.inhal, 2 PUFF IH DAILY Prescribed by: TWYLA VARGAS on 01/27/20 1310 Tramadol HCl 50 Mg Tablet, 50 MG PO Q4H Prescribed by: TWYLA VARGAS on 09/03/18 2340 Past Qbjbrbb-Ctrokw-Pguukc Hx Patient Social History Alcohol Use: Denies Use Smoking Status: Former Smoker Type Used: Cigarettes Former Smoker, Quit: May 11, 2008 2nd Hand Smoke Exposure: No Recent Infectious Disease Expo: No Recent Hopitalizations: No Have you traveled recently?: No Alcohol Use?: No Immunizations Up To Date Tetanus Booster (TDap): Unknown PED Vaccines UTD: Yes Seasonal Allergies Seasonal Allergies: No Past Medical History Surgeries: Yes ( LEFT MIDDLE FINGER SURGERY) Orthopedic Respiratory: Yes COPD Cardiac: No Neurological: No Genitourinary: No Gastrointestinal: Yes Ulcer Musculoskeletal: Yes Chronic Back Pain, Fractures Endocrine: No HEENT: No Cancer: No Psychosocial: No Integumentary: No Blood Disorders: No Sepsis Event Evaluation Height, Weight, BMI Height: 5'11.00" Weight: 270lbs. oz. 122.156230ck; 39.28 BMI Method:Stated Exam Exam Vital Signs Date Time Temp Pulse Resp B/P (MAP) Pulse Ox O2 Delivery O2 Flow Rate FiO2 07/17/20 04:00 92 Room Air 07/17/20 01:00 112 07/17/20 00:00 92 Room Air 07/16/20 23:00 116 29 122/92 (102) 96 Room Air 07/16/20 22:00 118 139/67 (91) 95 Room Air 07/16/20 21:45 115 14 145/64 (91) 95 Room Air 07/16/20 21:30 114 13 107/64 (78) 95 Room Air 07/16/20 21:15 112 10 103/69 (80) 95 Room Air 07/16/20 21:00 116 36 129/84 (99) 95 Room Air 07/16/20 20:45 106 15 116/75 (89) 95 Room Air 07/16/20 20:30 112 122/74 (90) 96 Room Air 07/16/20 20:24 96 Room Air 07/16/20 20:24 36.9 107 31 135/71 (92) 95 Room Air 07/16/20 20:14 106 07/16/20 19:24 36.8 119 26 126/65 94 Room Air 07/16/20 14:48 37.8 127 32 110/93 (99) 95 I & O 07/17/20 06:59 Intake Total 1400 ml Output Total 700 ml Balance 700 ml Height & Weight Height: 5'11.00" Weight: 270lbs. oz. 122.473304cq; 39.28 BMI Method:Stated Capillary Refill: Less Than 3 Seconds Results Lab Laboratory Tests 07/16/20 14:33 07/17/20 02:50 Assessment/Plan Assessment/Plan COVID-19 -Direct admit from -Influenza pending -Isolation -Currently on RA -Received BAM out patient Secondary PNA - with sepsis -Continue Cefepime -EICU managed through the night -Hodges cultures Hypophos -Replace metabolic lactic acidosis - improving -IVF currently NS at 125 -Give another liter bolus of LR -Change IVF to LR and increase to 150 -pt received 2 liters of IVF through the night Atypical pleuritic and reproducible CP - musculoskeletal secondary to coughing -Troponin is negative COPDAE -Breathing txs -Add Decadron 6mg IV daily Tachycardia -Monitor GUALBERTO SOLANO DO Jul 17, 2020 06:26
[2020-07-17] MEDS ORDERED: LACTATED RINGERS 1,000 ML IV SCH ×2 (06:30→15:30)
[2020-07-17] MEDS ORDERED: RT-ALBUTEROL INHALER HFA (VENTOLIN HFA) 18 GM IH ONE (07:46)
--- NOTE | 2020-07-17 07:51 | Diagnostic Imaging Report ---
History: Chest pain and tachycardia COMPARISON: 07/16/2020 TECHNIQUE: Frontal view the chest FINDINGS: Lung volumes are mildly low. There is mild central vascular congestion. No pleural effusion or pneumothorax is seen. The cardiac silhouette is stable in size. IMPRESSION: 1. Mild central vascular congestion. Dictated by: Dictated on workstation # [id number]
[2020-07-17] MEDS ORDERED: SODIUM PHOSPHATE INJ 30 MM in NS (IVPB) 250 ML INJ ONE (08:00)
[2020-07-17] MEDS: LACTATED RINGERS 1,000 ML IV SCH ×3 (08:41→20:05)
[2020-07-17] MEDS: CEFEPIME INJECTION 1,000 MG in WATER (STERILE) FOR INJECTION 10 ML IV SCH ×3 (08:44→20:05)
[2020-07-17] MEDS ORDERED: RT-ALBUTEROL INHALER HFA (VENTOLIN HFA) 18 GM IH SCH (09:00)
[2020-07-17] MEDS: IPRATROPIUM INHALER (ATROVENT) 12.9 GM INH SCH ×3 (09:06→18:46)
[2020-07-17 09:08] LABS: BILIRUBIN,URINE NEGATIVE (NEGATIVE); CLARITY,URINE CLEAR; COLOR,URINE YELLOW; GLUCOSE, URINE (UA) NEGATIVE (NEGATIVE); KETONES,URINE NEGATIVE (NEGATIVE); LEUKOCYTE ESTERASE ,URINE NEGATIVE (NEGATIVE); NITRITE,URINE NEGATIVE (NEGATIVE); PROTEIN,URINE NEGATIVE (NEGATIVE)
[2020-07-17 09:18] LABS: BACTERIA,URINE NEGATIVE /HPF; RBC,URINE RARE /HPF; WBC,URINE RARE /HPF
--- NOTE | 2020-07-17 10:11 | History & Physical-Hospitalist ---
History of Present Illness HPI/Chief Complaint CC: Chest pain with tachycardia HPI: This is a 54yoWM Pt of [facility] who was diagnosed with Covid ten days ago, he presented to [place] [facility] with chest pain, found to have tachycardia and elevated lactic acid. Septic work up completed, no evidence of any source of infection but he was sierra-cultured, placed on Cefepime empirically and given IV fluids and placed in the ICU for tachycardia. Pulmonology and cardiology consu lted, currently he feels like he just cant catch his breath but he is overall doing well. Source: patient Exam Limitations: no limitations Date Seen 07/17/20 Time Seen by a Provider: 08:30 Attending Physician Osiris Calabrese Pamela R Aprn Referring Physician Date of Admission Jul 16, 2020 at 20:06 Home Medications & Allergies Home Medications Reviewed patient Home Medication Reconciliation performed by pharmacy medication reconciliations personnel and payroll technician and/or nursing. Patients Allergies have been reviewed. Allergies Allergies Coded Allergies No Known Drug Allergies (Unverified09/03/18) Past Psosrge-Jcmrru-Ohwfip Hx Past Med/Social Hx: Reviewed Nursing Past Med/Soc Hx, Reviewed and Corrections made Patient Social History Marrital Status: single Alcohol Use: Denies Use Recreational Drug Use: No Smoking Status: Former Smoker Former Smoker, Quit: May 11, 2008 Type Used: Cigarettes 2nd Hand Smoke Exposure: No Recent Foreign Travel: No Contact w/other who traveled: No Recent Hopitalizations: No Recent Infectious Disease Expo: No Immunizations Up To Date Tetanus Booster (TDap): Unknown Pediatric: Yes Seasonal Allergies Seasonal Allergies: No Past Medical History Surgeries: Orthopedic Gastrointestinal: Ulcer Musculoskeletal: Chronic Back Pain, Fractures History of Blood Disorders: No Review of Systems Constitutional: see HPI, malaise, weakness Respiratory: dyspnea on exertion Physical Exam Physical Exam Vital Signs Vital Signs - First Documented 07/16/20 07/16/20 14:48 19:24 Temp 37.8 Pulse 127 Resp 32 B/P (MAP) 110/93 (99) Pulse Ox 95 O2 Delivery Room Air Capillary Refill : Less Than 3 Seconds Height, Weight, BMI Height: 5'11.00" Weight: 270lbs. oz. 122.674999eo; 39.28 BMI Method:Stated General Appearance: Anxious, Chronically ill, Mild Distress Respiratory: No Accessory Muscle Use, No Respiratory Distress, Accessory Muscle Use, Wheezing Cardiovascular: Tachycardia Neurologic/Psychiatric: Alert, Oriented x3, No Motor/Sensory Deficits, Normal Mood/Affect Results Results/Procedures Labs Laboratory Tests 07/16/20 14:33 07/17/20 02:50 07/18/20 01:28 Patient resulted labs reviewed. Assessment/Plan Admission Diagnosis Assessment: Tachycardia Elevated lactic acid refractory Wheezing COVID-19 Obesity Plan: Monitor wheezing IVF ICU Tachy Cardiology consultation Admission Status: Inpatient Order (span 2 midnights) Reason for Inpatient Admission: covid19 Diagnosis/Problems Diagnosis/Problems (1) COVID-19 (2) Chest pain Status: Acute Qualifiers: Chest pain type: unspecified Qualified Codes: R07.9 - Chest pain, unspecif ied (3) Tachycardia Status: Acute (4) COPD (chronic obstructive pulmonary disease) Status: Acute Qualifiers: COPD type: unspecified COPD Qualified Codes: J44.9 - Chronic obstructive pulmonary disease, unspecified (5) Chronic dyspnea Status: Acute (6) Pulmonary nodule seen on imaging study Status: Acute (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
--- NOTE | 2020-07-17 12:17 | Consultation-Cardiology ---
HPI-Cardiology Cardiology Consultation: Date of Consultation 07/17/20 Time Seen by a Provider: 11:50 Date of Admission 07-16-20 Attending Physician Osiris Nunes DO Admitting Physician Lisset Crisostomo Aprn Consulting Physician Torres Walters MD HPI: Chief Complaint: Tachycardia Chest pain Mr. Mann is a 54 yr old male admitted to ICU 4 from [facility] with sepsis d/t COVID related pneumonia. He was found to be tachycardic. He reports c/o lower left sided chest pain which has been present for several days. It is worse with coughing and palpation. He reports prior to admission he had been coughing quite frequently. He reports increase SOB the last week. He denies any LE swelling. No c/o palpitations. No c/o syncope or near syncope. Review of Systems-Cardiology Review of Systems Constitutional: chills, fever, malaise Eyes: No vision change Ears/Nose/Throat: No epistaxis, No recent hearing loss Respiratory: As described under HPI Cardiovascular: As described under HPI Gastrointestinal: No diarrhea, No nausea, No vomiting Genitourinary: No dysuria, No hematuria Musculoskeletal: no symptoms reported Skin: No rash on exposed areas, No ulcerations on exposed areas Psychiatric/Neurological: No anxiety, No depression, No seizure, No focal weakness, No syncope Hematologic: No bleeding abnormalities FGR-Pbvjuu-Svtimv Hx Patient Social History Smoking Status: Former Smoker 2nd Hand Smoke Exposure: No Have you traveled recently?: No Alcohol Use?: No Pt feels they are or have been: No Immunizations Up To Date Tetanus Booster (TDap): Unknown Past Medical History PMH As described under Assessment. Family Medical History Family Medical History: He reports his father had CAD. He reports his mother has CAD and a pacemaker. Allergies and Home Medications Allergies Coded Allergies: No Known Drug Allergies (Unverified , 09/03/18) Home Medications Albuterol Sulfate 1 Puff Puff, 2 PUFF IH Q4H PRN for SHORTNESS OF BREATH, (Reported) 1 PUFF = 90 MCG Fluticasone/Salmeterol 1 Each Blst.w.dev, 1 EACH IH BID, (Reported) Tiotropium [place] 1 Inh Aerp, 1 INH IH DAILY, (Reported) Physical Exam-Cardiology Physical Exam Vital Signs/I&O 3/9/07/17/20 07/17/20 07/17/20 20:00 20:00 21:00 22:15 Pulse 107 96 104 Resp 24 18 20 B/P (MAP) 103/66 (78) 125/84 (98) 116/70 (85) Pulse Ox 92 91 93 O2 Delivery Room Air Room Air Room Air Room Air 07/17/20 07/18/20 07/18/20 07/18/20 23:00 00:00 00:00 01:00 Pulse 93 114 85 Resp 15 30 B/P (MAP) 117/73 (88) 114/77 (89) 104/52 (69) Pulse Ox 93 92 94 O2 Delivery Room Air Room Air Room Air Room Air 07/18/20 07/18/20 07/18/20 07/18/20 02:00 02:19 02:20 03:00 Pulse 86 85 B/P (MAP) 121/71 (88) 137/68 (91) Pulse Ox 93 94 94 O2 Delivery Room Air Room Air Room Air Room Air 07/18/20 07/18/20 07/18/20 07/18/20 03:50 04:00 05:00 06:00 Pulse 80 103 79 B/P (MAP) 118/77 (91) 114/87 (96) 128/88 (101) Pulse Ox 92 96 96 93 O2 Delivery Room Air Room Air Room Air Room Air 07/18/20 00:00 Intake Total 890 ml Output Total 1600 ml Balance -710 ml Capillary Refill : Less Than 3 Seconds Constitutional: AAO x 3, well-developed, well-nourished HEENT: PERRL, hearing is well preserved, oral hygience is good Neck: No carotid bruit; carotid pulses are 2 + bilaterally Respiratory: No accessory muscle use, No respiratory distress; chest expansion is symmetric, chest is bilaterally symmetric, rhonchi (scattered; prolonged expiratory phase), other (diminished throughout) Cardiovascular: No JVD; tachycardia, S1 and S2 Gastrointestinal: No tender; soft, round, audible bowel sounds Extremities: no lower extremity edema bilateral Neurologic/Psychiatric: grossly intact (moves all extremities) Skin: No rash on exposed areas, No ulcerations on exposed areas Lymphatic: no adenopathy Data Review Labs Laboratory Tests 07/17/20 08:10: Lactic Acid Level 2.42*H, Troponin I < 0.028 07/17/20 08:45: Urine Color YELLOW, Urine Clarity CLEAR, Urine pH 7.0, Urine Specific [place] 1.010L, Urine Protein NEGATIVE, Urine Glucose (UA) NEGATIVE, Urine Ketones NEGATIVE, Urine Nitrite NEGATIVE, Urine Bilirubin NEGATIVE, Urine Urobilinogen 0.2, Urine Leukocyte Esterase NEGATIVE, Urine RBC (Auto) NEGATIVE, Urine RBC RARE, Urine WBC RARE, Urine Crystals NONE, Urine Bacteria NEGATIVE, Urine Casts NONE, Urine Mucus NEGATIVE, Urine Culture Indicated NO 07/17/20 10:00: Lactic Acid Level 2.32*H 07/17/20 12:30: Lactic Acid Level 2.86*H 07/17/20 14:37: Lactic Acid Level 3.20*H 07/17/20 16:45: Lactic Acid Level 2.98*H 07/17/20 21:01: Lactic Acid Level 3.05*H 07/18/20 01:28: Lactic Acid Level 2.17*H, White Blood Count 19.4H, Red Blood Count 4.92, Hemoglobin 14.4, Hematocrit 44, Mean Corpuscular Volume 90, Mean Corpuscular Hemoglobin 29, Mean Corpuscular Hemoglobin Concent 33, Red Cell Distribution Width 12.8, Platelet Count 309, Mean Platelet Volume 10.1, Immature Granulocyte % (Auto) 1, Neutrophils (%) (Auto) 82H, Lymphocytes (%) (Auto) 10L, Monocytes (%) (Auto) 8, Eosinophils (%) (Auto) 0, Basophils (%) (Auto) 0, Neutrophils # (Auto) 15.9H, Lymphocytes # (Auto) 1.9, Monocytes # (Auto) 1.5H, Eosinophils # (Auto) 0.0, Basophils # (Auto) 0.0, Immature Granulocyte # (Auto) 0.1, Sodium Level 136, Potassium Level 4.2, Chloride Level 105, Carbon Dioxide Level 22, Anion Gap 9, Blood Urea Nitrogen 16, Creatinine 0.84, Estimat Glomerular Filtration Rate > 60, BUN/Creatinine Ratio 19, Glucose Level 105, Calcium Level 8.7, Phosphorus Level 3.1, Magnesium Level 2.1 07/18/20 03:33: Lactic Acid Level 1.33 Microbiology 07/17/20 Influenza Types A,B Antigen (JAMIE) - Final, Complete 07/16/20 Blood Culture - Preliminary, Resulted No growth Radiology NAME: EULOGIO MANN [facility] REC#: [id number] PT STATUS: ADM IN : 1965 PHYSICIAN: OSIRIS NUNES DO ADMIT DATE: 07/16/20/ICU Signed Date of Exam:07/17/20 CHEST 1 VIEW, AP/PA ONLY History: Chest pain and tachycardia COMPARISON: 07/16/2020 TECHNIQUE: Frontal view the chest FINDINGS: Lung volumes are mildly low. There is mild central vascular congestion. No pleural effusion or pneumothorax is seen. The cardiac silhouette is stable in size. IMPRESSION: 1. Mild central vascular congestion. Dictated by: Dictated on workstation # [id number] Dict: 07/17/20739 Trans: 07/17/20920 [facility] [id number] Interpreted by: ROSALVA BARLOW MD Electronically signed by: ROSALVA BARLOW MD 07/17/20920 ECG Impression ECG Initial ECG Rhythm: S.Tach Comment RBBB A/P-Cardiology Assessment/Admission Diagnosis COVID (+) COVID related pneumonia Chest pain without evidence of ACS Sepsis secondary to pneumonia Sinus tachycardia r/t systemic illness Probable sleep apnea COPD Abnormal EKG with RBBB of undetermined length of time Discussion and Recomendations Chest pain of undetermined etiology with no evidence of ACS - by description appears musculoskeletal in origin Management of COVID related pneumonia with sepsis per medical/pulmonary services Monitor lab closely, replace electrolytes as indicated Start low dose BB for sinus tach Advise out pt sleep studies d/t suspected sleep apnea syndrome Echocardiogram to eval structure and function EKG shows ST with RBBB - advise further cardiac testing with MPI once respiratory status more stable Further recs will be based on his hospital course We would like to thank medical services for this consult RAF VASQUEZ Jul 17, 2020 12:17
[2020-07-17] MEDS: ENOXAPARIN 40 MG/0.4 ML (LOVENOX) SYR SC SCH (13:08)
[2020-07-17] MEDS: ASPIRIN 81 MG CHEW (CHILDREN'S ASA) PO SCH (13:08)
[2020-07-17] MEDS ORDERED: ONDANSETRON 4 MG/2 ML (SDV) Z0FRAN IVP PRN (13:30)
[2020-07-17] MEDS ORDERED: TIOT18CA2 IH (13:40)
[2020-07-17] MEDS ORDERED: RT-ALBUINH IH (13:40)
[2020-07-17] MEDS ORDERED: FLUT1DIS26 IH (13:40)
[2020-07-17] MEDS: ACETAMINOPHEN 325 MG TABLET PO PRN (13:54)
[2020-07-17] MEDS: RT-ALBUTEROL INHALER HFA (VENTOLIN HFA) 18 GM IH SCH (18:46)
--- NOTE | 2020-07-17 19:19 | Consultation-Cardiology ---
HPI-Cardiology Cardiology Consultation: Date of Consultation 07/17/20 Time Seen by a Provider: 17:45 Date of Admission Attending Physician Osiris Calabrese DO Admitting Physician Lisset Crisostomo Aprn Consulting Physician YADI DEAN MD, MA, FACP, FACC, FSCAI, CCDS HPI: Chief Complaint: CC: Tachycardia, chest discomfort HPI Mr. Mann is a 54 yr old male admitted to ICU 4 from [facility] ED with sepsis d/t COVID related pneumonia. He was found to be tachycardic. He reports c/o lower left sided chest pain which has been present for several days. It is worse with coughing and palpation. He reports prior to admission he had been coughing quite frequently. He reports increase SOB the last week. He denies any LE swelling. No c/o palpitations. No c/o syncope or near syncope. Review of Systems-Cardiology Review of Systems Constitutional: chills, fever, malaise Eyes: No vision change Ears/Nose/Throat: No epistaxis, No recent hearing loss Respiratory: As described under HPI Cardiovascular: As described under HPI Gastrointestinal: No diarrhea, No nausea, No vomiting Genitourinary: No dysuria, No hematuria Musculoskeletal: no symptoms reported Skin: No rash on exposed areas, No ulcerations on exposed areas Psychiatric/Neurological: No anxiety, No depression, No seizure, No focal weakness, No syncope Hematologic: No bleeding abnormalities YHG-Twasdq-Npopav Hx Patient Social History Smoking Status: Former Smoker 2nd Hand Smoke Exposure: No Have you traveled recently?: No Alcohol Use?: No Pt feels they are or have been: No Immunizations Up To Date Tetanus Booster (TDap): Unknown Past Medical History PMH As described under Assessment. Family Medical History Family Medical History: He reports his father had CAD. He reports his mother has CAD and a pacemaker. Allergies and Home Medications Allergies Coded Allergies: No Known Drug Allergies (Unverified , 09/03/18) Home Medications Albuterol Sulfate 1 Puff Puff, 2 PUFF IH Q4H PRN for SHORTNESS OF BREATH, (Reported) 1 PUFF = 90 MCG Fluticasone/Salmeterol 1 Each Blst.w.dev, 1 EACH IH BID, (Reported) Tiotropium [place] 1 Inh Aerp, 1 INH IH DAILY, (Reported) Patient Home Medication List Home Medication List Reviewed: Yes Physical Exam-Cardiology Physical Exam Vital Signs/I&O 07/17/20 07/17/20 07/17/20 07/17/20 08:00 08:45 09:00 09:10 Pulse 109 104 B/P (MAP) 124/78 (93) 109/74 (86) Pulse Ox 91 93 89 96 O2 Delivery Room Air Room Air Room Air Room Air 07/17/20 07/17/20 07/17/20 07/17/20 10:00 11:00 12:00 12:45 Pulse 109 107 106 Resp 38 B/P (MAP) 125/77 (93) 153/78 (103) 137/102 (114) Pulse Ox 91 90 90 91 O2 Delivery Room Air Room Air Room Air Room Air 07/17/20 07/17/20 07/17/20 07/17/20 12:45 13:00 13:02 14:00 Temp 36.1 Pulse 107 107 114 115 Resp 26 37 27 B/P (MAP) 140/73 (95) 140/73 (95) 140/83 (102) Pulse Ox 92 91 91 O2 Delivery Room Air Room Air Room Air 07/17/20 07/17/20 07/17/20 07/17/20 14:26 14:27 15:00 15:38 Temp 36.2 Pulse 124 Resp 19 B/P (MAP) 105/53 (70) Pulse Ox 92 92 92 O2 Delivery Room Air Room Air Room Air 07/17/20 07/17/20 07/17/20 07/17/20 16:00 16:26 17:00 18:00 Pulse 106 112 107 Resp 21 43 17 B/P (MAP) 117/54 (75) 153/93 (113) 137/69 (91) Pulse Ox 92 92 94 90 O2 Delivery Room Air Room Air Room Air Room Air 07/17/20 07/17/20 18:46 18:47 Pulse Ox 96 96 O2 Delivery Room Air Room Air 07/17/20 00:00 Intake Total 600 ml Output Total 300 ml Balance 300 ml Capillary Refill : Less Than 3 Seconds Constitutional: AAO x 3, well-developed, well-nourished HEENT: PERRL, hearing is well preserved, oral hygience is good Neck: No carotid bruit; carotid pulses are 2 + bilaterally Respiratory: No accessory muscle use, No respiratory distress; chest expansion is symmetric, chest is bilaterally symmetric, rhonchi (scattered; prolonged expiratory phase), other (diminished throughout) Cardiovascular: No JVD; tachycardia, S1 and S2 Gastrointestinal: No tender; soft, round, audible bowel sounds Extremities: no lower extremity edema bilateral Neurologic/Psychiatric: grossly intact (moves all extremities) Skin: No rash on exposed areas, No ulcerations on exposed areas Lymphatic: no adenopathy Data Review Labs Laboratory Tests 07/16/20 20:45: Troponin I < 0.028 07/16/20 21:20: Lactic Acid Level 3.71*H 07/16/20 23:58: Lactic Acid Level 4.80*H 07/17/20 02:50: Troponin I < 0.028, Lactic Acid Level 3.41*H, White Blood Count 16.1H, Red Blood Count 5.20, Hemoglobin 15.2, Hematocrit 46, Mean Corpuscular Volume 89, Mean Corpuscular Hemoglobin 29, Mean Corpuscular Hemoglobin Concent 33, Red Cell Distribution Width 12.8, Platelet Count 331, Mean Platelet Volume 9.8, Immature Granulocyte % (Auto) 1, Neutrophils (%) (Auto) 90H, Lymphocytes (%) (Auto) 7L, Monocytes (%) (Auto) 3, Eosinophils (%) (Auto) 0, Basophils (%) (Auto) 0, Neutrophils # (Auto) 14.4H, Lymphocytes # (Auto) 1.1, Monocytes # (Auto) 0.4, Eosinophils # (Auto) 0.0, Basophils # (Auto) 0.0, Immature Granulocyte # (Auto) 0.1, Neutrophils % (Manual) 89, Lymphocytes % (Manual) 5, Monocytes % (Manual) 4, Band Neutrophils 2, Blood Morphology Comment NORMAL, Sodium Level 135, Potassium Level 4.6, Chloride Level 103, Carbon Dioxide Level 20L, Anion Gap 12, Blood Urea Nitrogen 16, Creatinine 0.94, Estimat Glomerular Filtration Rate > 60, BUN/Creatinine Ratio 17, Glucose Level 131H, Calcium Level 8.9, Corrected Calcium 9.1, Phosphorus Level 2.5, Magnesium Level 1.9, Total Bilirubin 0.4, Aspartate Amino Transf (AST/SGOT) 13, Alanine Aminotransferase (ALT/SGPT) 28, Alkaline Phosphatase 53, Total Protein 6.4, Albumin 3.7 07/17/20 05:27: Lactic Acid Level 2.71*H 07/17/20 08:10: Lactic Acid Level 2.42*H, Troponin I < 0.028 07/17/20 08:45: Urine Color YELLOW, Urine Clarity CLEAR, Urine pH 7.0, Urine Specific [place] 1.010L, Urine Protein NEGATIVE, Urine Glucose (UA) NEGATIVE, Urine Ketones NEGATIVE, Urine Nitrite NEGATIVE, Urine Bilirubin NEGATIVE, Urine Urobilinogen 0.2, Urine Leukocyte Esterase NEGATIVE, Urine RBC (Auto) NEGATIVE, Urine RBC RARE, Urine WBC RARE, Urine Crystals NONE, Urine Bacteria NEGATIVE, Urine Casts NONE, Urine Mucus NEGATIVE, Urine Culture Indicated NO 07/17/20 10:00: Lactic Acid Level 2.32*H 07/17/20 12:30: Lactic Acid Level 2.86*H 07/17/20 14:37: Lactic Acid Level 3.20*H 07/17/20 16:45: Lactic Acid Level 2.98*H Microbiology 07/17/20 Influenza Types A,B Antigen (JAMIE) - Final, Complete 07/16/20 Blood Culture - Preliminary, Resulted No growth Laboratory Tests 07/16/20 14:33 07/17/20 02:50 A/P-Cardiology Assessment/Admission Diagnosis COVID-related pneumonia Chest discomfort without evidence of ACS Sepsis secondary to pneumonia Sinus tachycardia r/t systemic illness Probable sleep apnea COPD Abnormal EKG with RBBB of undetermined length of time Discussion and Recomendations Management of COVID related pneumonia with sepsis per medical/pulmonary services Monitor lab closely, replace electrolytes as indicated Start low dose BB for sinus tach Advise out pt sleep studies d/t suspected sleep apnea syndrome Echocardiogram to eval structure and function EKG shows ST with RBBB - advise further cardiac testing with MPI once respiratory status more stable Further recs will be based on his hospital course We would like to thank Medical services for this consult YADI DEAN MD FACP FAC CCDS Jul 17, 2020 19:19
[2020-07-17] MEDS: meTOprolol TARTRATE 25 MG (LOPRESSOR) TABLET PO SCH (20:05)
[2020-07-17] MEDS ORDERED: RT-ALBUTEROL SULF 2.5 MG/3 ML PRE-MIX VIAL IH PRN (21:00)
[2020-07-18 01:37] LABS: BASOPHILS % (AUTO) 0 % (0-10); EOSINOPHILS % (AUTO) 0 % (0-10); HEMATOCRIT 44 % (40-54); HEMOGLOBIN 14.4 g/dL (13.3-17.7); LYMPHOCYTES # (AUTO) 1.9 10^3/uL (1.0-4.0); LYMPHOCYTES % (AUTO) 10 % (12-44); MEAN CORPUSCULAR HEMOGLOBIN 29 pg (25-34); MEAN CORPUSCULAR HGB CONC 33 g/dL (32-36); MEAN CORPUSCULAR VOLUME 90 fL (80-99); MEAN PLATELET VOLUME 10.1 fL (9.0-12.2); MONOCYTES # (AUTO) 1.5 10^3/uL (0.0-1.0); MONOCYTES % (AUTO) 8 % (0-12); NEUTROPHILS # (AUTO) 15.9 10^3/uL (1.8-7.8); NEUTROPHILS % (AUTO) 82 % (42-75); PLATELET COUNT 309 10^3/uL (130-400); WHITE BLOOD COUNT 19.4 10^3/uL (4.3-11.0)
[2020-07-18 01:50] LABS: CHLORIDE 105 MMOL/L (98-107); POTASSIUM 4.2 MMOL/L (3.6-5.0); SODIUM 136 MMOL/L (135-145)
[2020-07-18 01:52] LABS: CALCIUM 8.7 MG/DL (8.5-10.1); GLUCOSE 105 MG/DL (70-105)
[2020-07-18 01:54] LABS: CARBON DIOXIDE 22 MMOL/L (21-32)
[2020-07-18 01:56] LABS: CREATININE SERUM 0.84 MG/DL (0.60-1.30); GFR ESTIMATED > 60; PHOSPHORUS 3.1 MG/DL (2.3-4.7)
[2020-07-18 01:57] LABS: BUN/CREATININE RATIO 19
[2020-07-18 01:58] LABS: MAGNESIUM 2.1 MG/DL (1.6-2.4)
[2020-07-18] MEDS: IPRATROPIUM INHALER (ATROVENT) 12.9 GM INH SCH ×4 (02:18→21:13)
[2020-07-18] MEDS: RT-ALBUTEROL INHALER HFA (VENTOLIN HFA) 18 GM IH SCH ×4 (02:18→21:12)
[2020-07-18] MEDS: CEFEPIME INJECTION 1,000 MG in WATER (STERILE) FOR INJECTION 10 ML IV SCH ×2 (02:36→08:56)
[2020-07-18] MEDS: LACTATED RINGERS 1,000 ML IV SCH ×4 (02:37→20:13)
[2020-07-18] MEDS: POTASSIUM CL 10MEQ/50ML IVPB 50 ML IV SCH (04:02)
[2020-07-18] MEDS: MAGNESIUM 1 GM/100 ML IVPB 100 ML IV SCH (04:02)
[2020-07-18] MEDS: KCL 20 MEQ TAB (K-DUR) PO SCH (04:02)
--- NOTE | 2020-07-18 04:50 | Pulmonary Progress Note ---
Subjective Time Seen by a Provider: 04:45 Subjective/Events-last exam No complications noted. Sepsis Event Evaluation Height, Weight, BMI Height: 5'11.00" Weight: 270lbs. oz. 122.906881qz; 39.28 BMI Method:Stated Focused Exam Lactate Level 07/17/20 21:01: Lactic Acid Level 3.05*H 07/18/20 01:28: Lactic Acid Level 2.17*H 07/18/20 03:33: Lactic Acid Level 1.33 Lactic Acid Level Laboratory Tests Test 07/18/20 01:28 07/18/20 03:33 Lactic Acid Level 2.17 MMOL/L (0.50-2.00) *H 1.33 MMOL/L (0.50-2.00) Exam Exam Vital Signs Date Time Temp Pulse Resp B/P (MAP) Pulse Ox O2 Delivery O2 Flow Rate FiO2 07/18/20 03:50 92 Room Air 07/18/20 02:20 94 Room Air 07/18/20 02:19 94 Room Air 07/18/20 00:00 114 30 114/77 (89) Room Air 07/18/20 00:00 92 Room Air 07/17/20 23:00 93 15 117/73 (88) 93 Room Air 07/17/20 22:15 104 20 116/70 (85) Room Air 07/17/20 21:00 96 18 125/84 (98) 93 Room Air 07/17/20 20:00 107 24 103/66 (78) 91 Room Air 07/17/20 20:00 92 Room Air 07/17/20 19:00 120 07/17/20 19:00 120 21 128/63 (84) 93 Room Air 07/17/20 18:47 96 Room Air 07/17/20 18:46 96 Room Air 07/17/20 18:00 107 17 137/69 (91) 90 Room Air 07/17/20 17:00 112 43 153/93 (113) 94 Room Air 07/17/20 16:26 92 Room Air 07/17/20 16:00 106 21 117/54 (75) 92 Room Air 07/17/20 15:38 36.2 07/17/20 15:00 124 19 105/53 (70) 92 Room Air 07/17/20 14:27 92 Room Air 07/17/20 14:26 92 Room Air 07/17/20 14:00 115 27 140/83 (102) 91 Room Air 07/17/20 13:02 114 07/17/20 13:00 107 37 140/73 (95) 91 Room Air 07/17/20 12:45 36.1 107 26 140/73 (95) 92 Room Air 07/17/20 12:45 91 Room Air 07/17/20 12:00 106 38 137/102 (114) 90 Room Air 07/17/20 11:00 107 153/78 (103) 90 Room Air 07/17/20 10:00 109 125/77 (93) 91 Room Air 07/17/20 09:10 96 Room Air 07/17/20 09:00 104 109/74 (86) 89 Room Air 07/17/20 08:45 93 Room Air 07/17/20 08:00 109 124/78 (93) 91 Room Air 07/17/20 07:00 106 103/64 (77) 90 Room Air 07/17/20 06:57 109 07/17/20 06:00 109 125/62 (83) 91 Room Air 07/17/20 05:00 105 125/69 (87) 93 Room Air I & O 07/18/20 07:00 Intake Total 1305 ml Output Total 3500 ml Balance -2195 ml Height & Weight Height: 5'11.00" Weight: 270lbs. oz. 122.148154qv; 39.28 BMI Method:Stated General Appearance: No Apparent Distress, Anxious HEENT: PERRL/EOMI, TMs Normal, Pharynx Normal Neck: Full Range of Motion, Non Tender, Supple Respiratory: Chest Non Tender, Lungs Clear, Normal Breath Sounds, No Accessory Muscle Use, Decreased Breath Sounds Cardiovascular: Regular Rate, Rhythm Capillary Refill: Less Than 3 Seconds Gastrointestinal: non tender, soft Extremity: Normal Capillary Refill, Normal Inspection Neurologic/Psychiatric: Alert Skin: Normal Color, Warm/Dry Lymphatic: No Adenopathy Results Lab Laboratory Tests 07/16/20 14:33 07/17/20 02:50 07/18/20 01:28 Assessment/Plan Assessment/Plan COVID-19 -Direct admit from -Influenza negative -Isolation -Currently on RA -Received BAM out patient Secondary PNA - with sepsis -Continue Cefepime -EICU managed through the night -Hodges cultures Hypophos -Replace metabolic lactic acidosis - resolved -IVF currently LR at 150 Atypical pleuritic and reproducible CP - musculoskeletal secondary to coughing -Troponin is negative COPDAE -Breathing txs -Decadron 6mg IV daily Tachycardia -Monitor GUALBERTO SOLANO DO Jul 18, 2020 04:50
[2020-07-18] MEDS ORDERED: ADVAIR HFA 115/21 MCG INHALER 8 GM IH SCH (08:00)
[2020-07-18] MEDS ORDERED: UMECLIDINIUM BROMIDE (INCRUSE ELLIPTA) 7'S IH SCH (08:00)
--- NOTE | 2020-07-18 08:40 | Diagnostic Imaging Report ---
INDICATION: Chest pain. Time of exam 200 a.m. Correlation is made with prior chest 1 day earlier. Heart size normal. Lungs are clear. No infiltrates are detected. No effusion or pneumothorax is identified. IMPRESSION: Stable chest. No acute features detected. Dictated by: Dictated on workstation # [id number]
[2020-07-18] MEDS: FLUTICASONE/SALMETEROL 113-14 (AIRDUO RespiCLICK) IH SCH ×2 (08:54→21:12)
[2020-07-18] MEDS: ASPIRIN 81 MG CHEW (CHILDREN'S ASA) PO SCH (08:57)
[2020-07-18] MEDS: meTOprolol TARTRATE 25 MG (LOPRESSOR) TABLET PO SCH ×2 (08:57→20:12)
[2020-07-18] MEDS ORDERED: PANTOPRAZOLE 40 MG (PROTONIX) VIAL IV SCH (09:00)
[2020-07-18] MEDS ORDERED: TIOTROPIUM BROMIDE (SPIRIVA) 5'S INHALER IH SCH (09:00)
--- NOTE | 2020-07-18 10:08 | Progress Note - Cardiology ---
Cardiology SOAP Progress Note Objective: I&O/Vital Signs 07/18/20 07/19/20 07/19/20 07/19/20 23:26 02:15 02:15 03:25 Temp 36.4 36.5 Pulse 83 84 Resp 20 20 B/P (MAP) 102/52 (69) 128/59 (82) Pulse Ox 95 94 94 96 O2 Delivery Room Air Room Air Room Air Room Air 07/19/20 07/19/20 07/19/20 07:29 08:00 08:00 Temp 36.5 Pulse 80 Resp 20 B/P (MAP) 132/62 (85) Pulse Ox 92 94 94 O2 Delivery Room Air Room Air Room Air 07/19/20 00:00 Intake Total 1830 ml Balance 1830 ml Weight (Pounds): 270 Weight (Calculated Kilograms): 122.511640 Constitutional: AAO x 3, well-developed, well-nourished Respiratory: No accessory muscle use, No respiratory distress; chest expansion is symmetric, chest is bilaterally symmetric, rhonchi (scattered; prolonged expiratory phase), other (diminished throughout) Cardiovascular: No JVD; tachycardia, S1 and S2 Gastrointestional: No tender; soft, round, audible bowel sounds Extremities: no lower extremity edema bilateral Neurologic/Psychiatric: grossly intact (moves all extremities) Skin: No rash on exposed areas, No ulcerations on exposed areas Results/Procedures: Labs Laboratory Tests 07/19/20 05:55: White Blood Count 12.1H, Red Blood Count 4.74, Hemoglobin 13.6, Hematocrit 43, Mean Corpuscular Volume 91, Mean Corpuscular Hemoglobin 29, Mean Corpuscular Hemoglobin Concent 32, Red Cell Distribution Width 12.9, Platelet Count 255, Mean Platelet Volume 10.4, Immature Granulocyte % (Auto) 1, Neutrophils (%) (Auto) 73, Lymphocytes (%) (Auto) 19, Monocytes (%) (Auto) 7, Eosinophils (%) (Auto) 0, Basophils (%) (Auto) 0, Neutrophils # (Auto) 8.8H, Lymphocytes # (Auto) 2.3, Monocytes # (Auto) 0.9, Eosinophils # (Auto) 0.0, Basophils # (Auto) 0.0, Immature Granulocyte # (Auto) 0.1, Sodium Level 139, Potassium Level 4.1, Chloride Level 106, Carbon Dioxide Level 25, Anion Gap 8, Blood Urea Nitrogen 14, Creatinine 0.81, Estimat Glomerular Filtration Rate > 60, BUN/Creatinine Ratio 17, Glucose Level 95, Calcium Level 8.4L, Corrected Calcium 9.0, Total Bilirubin 0.3, Aspartate Amino Transf (AST/SGOT) 12, Alanine Aminotransferase (ALT/SGPT) 23, Alkaline Phosphatase 46, Total Protein 5.3L, Albumin 3.2 Microbiology 07/17/20 Influenza Types A,B Antigen (JAMIE) - Final, Complete 07/16/20 Blood Culture - Preliminary, Resulted No growth Procedures NAME: EULOGIO CALI [facility] REC#: [id number] PT STATUS: ADM IN : 1965 PHYSICIAN: ODETTE NUNES DO ADMIT DATE: 07/16/20/ICU Draft Date of Exam:07/18/20 CHEST 1 VIEW, AP/PA ONLY INDICATION: Chest pain. Time of exam 200 a.m. Correlation is made with prior chest 1 day earlier. Heart size normal. Lungs are clear. No infiltrates are detected. No effusion or pneumothorax is identified. IMPRESSION: Stable chest. No acute features detected. Dictated on workstation # [id number] Dict: 07/18/2031 Trans: 07/18/20 0840 [facility] [id number] Interpreted by: DARYL SIMON MD Electronically signed by: A/P: Assessment: COVID-related pneumonia Chest discomfort without evidence of ACS Sepsis secondary to pneumonia Sinus tachycardia r/t systemic illness Probable sleep apnea COPD Abnormal EKG with RBBB of undetermined length of time Plan: Management of COVID related pneumonia with sepsis per medical/pulmonary services Monitor lab closely, replace electrolytes as indicated Advise out pt sleep studies d/t suspected sleep apnea syndrome Echocardiogram to eval structure and function EKG shows ST with RBBB - advise further cardiac testing with MPI once respiratory status more stable Continue current regimen RAF VASQUEZ Jul 18, 2020 10:08
--- NOTE | 2020-07-18 11:09 | Progress Note - Hospitalist ---
Subjective HPI/CC On Admission Date Seen by Provider: Jul 18, 2020 Time Seen by Provider: 09:30 CC: Chest pain with tachycardia HPI: This is a 54yoWM Pt of [facility] who was diagnosed with Covid ten days ago, he presented to [place] ER with chest pain, found to have tachycardia and elevated lactic acid. Septic work up completed, no evidence of any source of infection but he was sierra-cultured, placed on Cefepime empirically and given IV fluids and placed in the ICU for tachycardia. Pulmonology and cardiology consulted, currently he feels like he just cant catch his breath but he is overall doing well. Subjective/Events-last exam Pt much improved Lactic acid now normal Transferring to 4th floor Feels much better Received about 8 liters of fluid since admission Covid syndrome noted Still in isolation Review of Systems General: Fatigue Pulmonary: Dyspnea Focused Exam Lactate Level 07/17/20 21:01: Lactic Acid Level 3.05*H 07/18/20 01:28: Lactic Acid Level 2.17*H 07/18/20 03:33: Lactic Acid Level 1.33 Objective Exam Vital Signs Vital Signs Date Time Temp Pulse Resp B/P (MAP) Pulse Ox O2 Delivery O2 Flow Rate FiO2 07/19/20 03:25 36.5 84 20 128/59 (82) 96 Room Air Capillary Refill : Less Than 3 Seconds General Appearance: No Apparent Distress, WD/WN, Obese Respiratory: Chest Non Tender, Lungs Clear, Normal Breath Sounds, No Accessory Muscle Use, No Respiratory Distress, Decreased Breath Sounds Cardiovascular: Regular Rate, Rhythm, No Edema, No Gallop, No JVD, No Murmur, Normal Peripheral Pulses Neurologic/Psychiatric: Alert, Oriented x3, No Motor/Sensory Deficits, Normal Mood/Affect Results/Procedures Lab Patient resulted labs reviewed. Assessment/Plan Assessment and Plan Assess & Plan/Chief Complaint Assessment: Tachycardia Elevated lactic acid refractory Wheezing COVID-19 Obesity Plan: Monitor wheezing IVF ICU Tachy Cardiology consultation 07/18/20: Move to [facility] Monitor lung status O2 prn Diagnosis/Problems Diagnosis/Problems (1) COVID-19 (2) Chest pain Status: Acute Qualifiers: Chest pain type: unspecified Qualified Codes: R07.9 - Chest pain, unspecified (3) Tachycardia Status: Acute (4) COPD (chronic obstructive pulmonary disease) Status: Acute Qualifiers: COPD type: unspecified COPD Qualified Codes: J44.9 - Chronic obstructive pulmonary disease, unspecified (5) Chronic dyspnea Status: Acute (6) Pulmonary nodule seen on imaging study Status: Acute (7) 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
[2020-07-18] MEDS: ENOXAPARIN 40 MG/0.4 ML (LOVENOX) SYR SC SCH (14:52)
[2020-07-19] MEDS: RT-ALBUTEROL INHALER HFA (VENTOLIN HFA) 18 GM IH SCH ×4 (02:14→21:34)
[2020-07-19] MEDS: IPRATROPIUM INHALER (ATROVENT) 12.9 GM INH SCH ×4 (02:15→21:34)
[2020-07-19] MEDS: LACTATED RINGERS 1,000 ML IV SCH ×2 (03:25→09:12)
[2020-07-19 06:09] LABS: BASOPHILS % (AUTO) 0 % (0-10); EOSINOPHILS % (AUTO) 0 % (0-10); HEMATOCRIT 43 % (40-54); HEMOGLOBIN 13.6 g/dL (13.3-17.7); LYMPHOCYTES # (AUTO) 2.3 10^3/uL (1.0-4.0); LYMPHOCYTES % (AUTO) 19 % (12-44); MEAN CORPUSCULAR HEMOGLOBIN 29 pg (25-34); MEAN CORPUSCULAR HGB CONC 32 g/dL (32-36); MEAN CORPUSCULAR VOLUME 91 fL (80-99); MEAN PLATELET VOLUME 10.4 fL (9.0-12.2); MONOCYTES # (AUTO) 0.9 10^3/uL (0.0-1.0); MONOCYTES % (AUTO) 7 % (0-12); NEUTROPHILS # (AUTO) 8.8 10^3/uL (1.8-7.8); NEUTROPHILS % (AUTO) 73 % (42-75); PLATELET COUNT 255 10^3/uL (130-400); WHITE BLOOD COUNT 12.1 10^3/uL (4.3-11.0)
--- NOTE | 2020-07-19 06:09 | Progress Note - Hospitalist ---
Subjective HPI/CC On Admission Date Seen by Provider: Jul 19, 2020 Time Seen by Provider: 11:00 CC: Chest pain with tachycardia HPI: This is a 54yoWM Pt of [facility] who was diagnosed with Covid ten days ago, he presented to [place] ER with chest pain, found to have tachycardia and elevated lactic acid. Septic work up completed, no evidence of any source of infection but he was sierra-cultured, placed on Cefepime empirically and given IV fluids and placed in the ICU for tachycardia. Pulmonology and cardiology consulted, currently he feels like he just cant catch his breath but he is overall doing well. Subjective/Events-last exam Patient doing well HLIVF Lasix 20mg IVP once Home O2 study Patient lays around a lot due to dyspnea and tachycardia but then wants to go home today and go back to work so very confusing to eval Checked meds and labs Review of Systems General: Fatigue, Malaise Pulmonary: Dyspnea Focused Exam Lactate Level 07/17/20 21:01: Lactic Acid Level 3.05*H 07/18/20 01:28: Lactic Acid Level 2.17*H 07/18/20 03:33: Lactic Acid Level 1.33 Objective Exam Vital Signs Vital Signs Date Time Temp Pulse Resp B/P (MAP) Pulse Ox O2 Delivery O2 Flow Rate FiO2 07/20/20 02:25 93 Room Air 07/20/20 00:13 36.4 68 24 112/60 (77) Capillary Refill : Less Than 3 Seconds General Appearance: No Apparent Distress, WD/WN, Chronically ill Respiratory: Chest Non Tender, Lungs Clear, Normal Breath Sounds, No Accessory Muscle Use, No Respiratory Distress, Decreased Breath Sounds Cardiovascular: Regular Rate, Rhythm, No Edema, No Gallop, No JVD, No Murmur, Normal Peripheral Pulses Neurologic/Psychiatric: Alert, Oriented x3, No Motor/Sensory Deficits, Depressed Affect Results/Procedures Lab Laboratory Tests 07/19/20 05:55 Patient resulted labs reviewed. Assessment/Plan Assessment and Plan Assess & Plan/Chief Complaint Assessment: Tachycardia Elevated lactic acid refractory Wheezing COVID-19 Obesity Plan: Monitor wheezing IVF ICU Tachy Cardiology consultation 07/18/20: Move to 4th Monitor lung status O2 prn 07/19/20: HLIVF Lasix once DC tomorrow Home O2 eval Diagnosis/Problems Diagnosis/Problems (1) COVID-19 (2) Chest pain Status: Acute Qualifiers: Chest pain type: unspecified Qualified Codes: R07.9 - Chest pain, unspecified (3) Tachycardia Status: Acute (4) COPD (chronic obstructive pulmonary disease) Status: Acute Qualifiers: COPD type: unspecified COPD Qualified Codes: J44.9 - Chronic obstructive pulmonary disease, unspecified (5) Chronic dyspnea Status: Acute (6) Pulmonary nodule seen on imaging study Status: Acute (7) 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
[2020-07-19 06:26] LABS: ALANINE AMINOTRANSFERASE 23 U/L (0-55); ALBUMIN 3.2 GM/DL (3.2-4.5); ALKALINE PHOSPHATASE 46 U/L (40-136); BILIRUBIN,TOTAL 0.3 MG/DL (0.1-1.0); BUN/CREATININE RATIO 17; CALCIUM 8.4 MG/DL (8.5-10.1); CARBON DIOXIDE 25 MMOL/L (21-32); CHLORIDE 106 MMOL/L (98-107); CREATININE SERUM 0.81 MG/DL (0.60-1.30); GFR ESTIMATED > 60; GLUCOSE 95 MG/DL (70-105); POTASSIUM 4.1 MMOL/L (3.6-5.0); SODIUM 139 MMOL/L (135-145); TOTAL PROTEIN 5.3 GM/DL (6.4-8.2)
[2020-07-19] MEDS: FLUTICASONE/SALMETEROL 113-14 (AIRDUO RespiCLICK) IH SCH ×2 (07:28→21:35)
[2020-07-19] MEDS: meTOprolol TARTRATE 25 MG (LOPRESSOR) TABLET PO SCH ×2 (09:12→21:25)
[2020-07-19] MEDS: PANTOPRAZOLE 40 MG (PROTONIX) TAB PO SCH (09:12)
[2020-07-19] MEDS: ASPIRIN 81 MG CHEW (CHILDREN'S ASA) PO SCH (09:12)
--- NOTE | 2020-07-19 10:01 | Progress Note - Cardiology ---
Cardiology SOAP Progress Note Subjective: In bed No c/o CP, palpitations Feels SOB is improving Objective: I&O/Vital Signs 07/18/20 07/19/20 07/19/20 07/19/20 23:26 02:15 02:15 03:25 Temp 36.4 36.5 Pulse 83 84 Resp 20 20 B/P (MAP) 102/52 (69) 128/59 (82) Pulse Ox 95 94 94 96 O2 Delivery Room Air Room Air Room Air Room Air 07/19/20 07/19/20 07/19/20 07:29 08:00 08:00 Temp 36.5 Pulse 80 Resp 20 B/P (MAP) 132/62 (85) Pulse Ox 92 94 94 O2 Delivery Room Air Room Air Room Air 07/19/20 00:00 Intake Total 1830 ml Balance 1830 ml Weight (Pounds): 270 Weight (Calculated Kilograms): 122.502313 Constitutional: AAO x 3, well-developed, well-nourished Respiratory: No accessory muscle use, No respiratory distress; chest expansion is symmetric, chest is bilaterally symmetric, other (good air entry) Cardiovascular: No JVD; S1 and S2 Gastrointestional: No tender; soft, round, audible bowel sounds Extremities: no lower extremity edema bilateral Neurologic/Psychiatric: grossly intact (moves all extremities) Skin: No rash on exposed areas, No ulcerations on exposed areas Results/Procedures: Labs Laboratory Tests 07/19/20 05:55: White Blood Count 12.1H, Red Blood Count 4.74, Hemoglobin 13.6, Hematocrit 43, Mean Corpuscular Volume 91, Mean Corpuscular Hemoglobin 29, Mean Corpuscular Hemoglobin Concent 32, Red Cell Distribution Width 12.9, Platelet Count 255, Mean Platelet Volume 10.4, Immature Granulocyte % (Auto) 1, Neutrophils (%) (Auto) 73, Lymphocytes (%) (Auto) 19, Monocytes (%) (Auto) 7, Eosinophils (%) (Auto) 0, Basophils (%) (Auto) 0, Neutrophils # (Auto) 8.8H, Lymphocytes # (Auto) 2.3, Monocytes # (Auto) 0.9, Eosinophils # (Auto) 0.0, Basophils # (Auto) 0.0, Immature Granulocyte # (Auto) 0.1, Sodium Level 139, Potassium Level 4.1, Chloride Level 106, Carbon Dioxide Level 25, Anion Gap 8, Blood Urea Nitrogen 14, Creatinine 0.81, Estimat Glomerular Filtration Rate > 60, BUN/Creatinine Ratio 17, Glucose Level 95, Calcium Level 8.4L, Corrected Calcium 9.0, Total Bilirubin 0.3, Aspartate Amino Transf (AST/SGOT) 12, Alanine Aminotransferase (ALT/SGPT) 23, Alkaline Phosphatase 46, Total Protein 5.3L, Albumin 3.2 Microbiology 07/17/20 Influenza Types A,B Antigen (JAMIE) - Final, Complete 07/16/20 Blood Culture - Preliminary, Resulted No growth Laboratory Tests 07/18/20 01:28 07/19/20 05:55 A/P: Assessment: COVID-related pneumonia Chest discomfort without evidence of ACS Sepsis secondary to pneumonia Sinus tachycardia r/t systemic illness Probable sleep apnea COPD Abnormal EKG with RBBB of undetermined length of time Echocardiogram of 07-17-20 shows normal LVEF Plan: Management of COVID related pneumonia with sepsis per medical/pulmonary services Monitor lab closely, replace electrolytes as indicated Advise out pt sleep studies d/t suspected sleep apnea syndrome EKG shows ST with RBBB - advise further cardiac testing with MPI once respiratory status more stable Continue current regimen RAF VASQUEZ Jul 19, 2020 10:01
[2020-07-19] MEDS: ENOXAPARIN 40 MG/0.4 ML (LOVENOX) SYR SC SCH (14:09)
--- NOTE | 2020-07-19 14:52 | Physical Therapy Evaluation ---
PT Evaluation-General Medical Diagnosis Admission Date Jul 16, 2020 at 20:06 Medical Diagnosis: chest pain; COVID 19 Onset Date: Jul 19, 2020 Therapy Diagnosis Therapy Diagnosis: abn gait Height/Weight Height (Feet): 5 Height (Inches): 11.00 Weight (Pounds): 270 Precautions Precautions/Isolations: Contact Isolation, Droplet Isolation Referral Physician: [place] Reason for Referral: Evaluation/Treatment Medical History Pertinent Medical History: COPD Additional Medical History DX of COVID 19 approx 12 days ago. Current History Pt reports he hopes to go home tomorrow. Reports he feels tired and a little weak but reports he has not been up much. Reports he has showered and toileted himself without assist. Reviewed History: Yes Social History Home: Single Level Current Living Status: Spouse Entry Into Home: Stairs With Railing Prior Prior Level of Function SCALE: Activities may be completed with or without assistive devices. 9-Xrpafqfopi-qbplaaj completes the activity by him/herself with no assistance from a helper. 5-Set-up or Clean-up Assistance-helper sets up or cleans up; patient completes activity. [place] assists only prior to or following the activity. 4-Supervision or Touching Assistance-helper provides verbal cues and/or touching/steadying and/or contact guard assistance as patient completes activity. Assistance may be provided throughout the activity or intermittently. 3-Partial/Moderate Assistance-helper does LESS THAN HALF the effort. [place] lifts, holds or supports trunk or limbs, but provides less than half the effort. 2-Substantial/Maximal Assistance-helper does MORE THAN HALF the effort. [place] lifts or holds trunk or limbs and provides more than half the effort. 8-Ioqsctkic-cnwwds does ALL the effort. Patient does none of the effort to c omplete the activity. Or, the assistance of 2 or more helpers is required for the patient to complete the activity. If activity was not attempted, code reason: 7-Patient Refused. 9-Not Applicable-not attempted and the patient did not perform the activity before the current illness, exacerbation or injury. 10-Not Attempted due to Environmental Limitations-(lack of equipment, weather restraints, etc.). 88-Not Attempted due to Medical Conditions or Safety Concerns. 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 Reports he feels he tires easily. Pain Numeric Pain Scale: 0-No Pain Objective Patient Orientation: Person, Place, Time, Situation ROM/Strength ROM Lower Extremities WNL Strength Lower Extremities WFL B LE Integumentary/Posture Integumentary intact Bowel Incontinence: No Bladder Incontinence: No Posture normal and symmetrical Neuromuscular (Tone, Coordination, Reflexes) intact and functional Sensory Vision: Functional Hearing: Functional Hand Dominance: Right Sensation Right Lower Extremit: Intact Sensation Left Lower Extremity: Intact Transfers Roll Left to Right (QC): 6 Sit to Lying (QC): 6 Lying to Sitting/Side of Bed(Q: 6 Sit to Stand (QC): 6 Chair/Kny-ef-Fzwqj Xfer(QC): 6 Gait Does the Patient Walk?: Yes Mode of Locomotion: Walk Walk 10 feet (QC): 6 Walk 50 ft with 2 Turns(QC): 6 Walk 150 ft (QC): 6 Gait Assistive Device: None Balance Sitting Static: Normal Sitting Dynamic: Normal Standing Static: Normal Standing Dynamic: Normal Treatment Functional gait and transfer training and education on safety and breathing technique. Pt walked 150 ft x 2 in room without AD or assist. O2 sats throughout treatment at 94% on room air before, during and after gait. Assessment/Needs Pt presents with hospital stay that has led to limited out of bed activity with decreased activity level. He is indep with mobility but does seem to get a bit SOA. His sats remained stable throughout visit. He will benefit from a follow up visit to ensure he is safe with mobility and provide opportunity to ask questions if needed. Otherwise, he will be ready for DC from skilled PT services. Rehab Potential: Good PT Swimming Pool Cleaner Goals Swimming Pool Cleaner Goals PT Swimming Pool Cleaner Goals Time Frame: Jul 23, 2020 Pt to demonstrate indep with all mobility and to voice no questions or concerns prior to DC from PT PT Plan Problem List Problem List: Activity Tolerance, Safety Treatment/Plan Treatment Plan: Continue Plan of Care Treatment Plan: Safety Treatment Duration: Jul 23, 2020 Frequency: 5 times per week Estimated Hrs Per Day: .25 hour per day Patient and/or Family Agrees t: Yes Safety Risks/Education Patient Education: Safety Issues Teaching Recipient: Patient Teaching Methods: Discussion Response to Teaching: Return Demonstration Time/GCodes Time In: 1415 Time Out: 1445 Total Billed Treatment Time: 30 Total Billed Treatment visit EVM 15 GT 15 MICHAEL TORRES PT Jul 19, 2020 14:52
--- NOTE | 2020-07-19 17:32 | Physician Query Clarification ---
"Physician Query-General Query to Physician: The medical record reflects the following clinical scenario: History/Risk factors: Covid, PNA Clinical Findings: P 127, RR 32, BP 110/93, T 37.8 WBC 12.5, LA 2.13 increased to 4.8 Treatment: LR 1L, solu-medrol, NS 1L, Cefepime Do you agree with the impression of Sepsis per Romeo Sim, and Mitzy Rosa? If you agree, please document in Progress Notes or Discharge Summary. 1. Yes; will document Sepsis due to pneumonia/Covid 19, present on admission 2. No; will continue to document Covid 19 in the Progress Notes 3. Other; will document explanation of clinical findings 4. Clinically undetermined; no explanation for clinical findings Please remember a lack of response to the above will prompt a phone page by CDI/coding staff In responding to this query, please exercise your independent professional judgment. The purpose of this communication is to more accurately reflect the complexity of your patients condition. The fact that a question is asked does not imply that any particular answer is desired or expected. Thank you for timely response to this clarification. Em Boyd, MSN, RN RN Specialist-Clinical Doc Improvement CD -Health Info Mgmt Operations [address] [facility] t: [phone] | f: [phone] If you are unable to reach me at my extension, I may be working from home. Please contact me at [phone] PHYSICIAN RESPONSE: Based on the clinical findings in the record, please respond to the query above on this document as an addendum. Physician Response: Physician Response yes If you have questions please contact: Librarian Head: Ext: Thank you for your time and cooperation. Clinical Meter Reader/Librarian Head This is a permanent part of the medical record EM BOYD Jul 19, 2020 17:32 ODETTE NUNES DO Jul 19, 2020 20:31"
[2020-07-20] MEDS: RT-ALBUTEROL INHALER HFA (VENTOLIN HFA) 18 GM IH SCH ×2 (02:24→07:03)
[2020-07-20] MEDS: IPRATROPIUM INHALER (ATROVENT) 12.9 GM INH SCH ×2 (02:25→07:04)
[2020-07-20 05:44] LABS: BASOPHILS % (AUTO) 0 % (0-10); EOSINOPHILS % (AUTO) 0 % (0-10); HEMATOCRIT 45 % (40-54); HEMOGLOBIN 14.6 g/dL (13.3-17.7); LYMPHOCYTES # (AUTO) 2.4 10^3/uL (1.0-4.0); LYMPHOCYTES % (AUTO) 19 % (12-44); MEAN CORPUSCULAR HEMOGLOBIN 29 pg (25-34); MEAN CORPUSCULAR HGB CONC 33 g/dL (32-36); MEAN CORPUSCULAR VOLUME 90 fL (80-99); MEAN PLATELET VOLUME 11.1 fL (9.0-12.2); MONOCYTES # (AUTO) 0.9 10^3/uL (0.0-1.0); MONOCYTES % (AUTO) 7 % (0-12); NEUTROPHILS # (AUTO) 9.6 10^3/uL (1.8-7.8); NEUTROPHILS % (AUTO) 74 % (42-75); PLATELET COUNT 180 10^3/uL (130-400)
[2020-07-20 05:59] LABS: ALBUMIN 3.5 GM/DL (3.2-4.5); CHLORIDE 106 MMOL/L (98-107); SODIUM 138 MMOL/L (135-145)
[2020-07-20 06:00] LABS: CALCIUM 8.6 MG/DL (8.5-10.1)
[2020-07-20 06:01] LABS: GLUCOSE 89 MG/DL (70-105); TOTAL PROTEIN 5.8 GM/DL (6.4-8.2)
[2020-07-20 06:03] LABS: BILIRUBIN,TOTAL 0.4 MG/DL (0.1-1.0); CARBON DIOXIDE 23 MMOL/L (21-32)
[2020-07-20 06:05] LABS: ALKALINE PHOSPHATASE 50 U/L (40-136); CREATININE SERUM 0.79 MG/DL (0.60-1.30); GFR ESTIMATED > 60
[2020-07-20 06:06] LABS: BUN/CREATININE RATIO 14
[2020-07-20 06:34] LABS: ALANINE AMINOTRANSFERASE 25 U/L (0-55)
[2020-07-20] MEDS: FLUTICASONE/SALMETEROL 113-14 (AIRDUO RespiCLICK) IH SCH (07:04)
[2020-07-20 08:00] VITALS: BP 116/63
[2020-07-20] MEDS: ASPIRIN 81 MG CHEW (CHILDREN'S ASA) PO SCH (10:01)
[2020-07-20] MEDS: meTOprolol TARTRATE 25 MG (LOPRESSOR) TABLET PO SCH (10:01)
[2020-07-20] MEDS: PANTOPRAZOLE 40 MG (PROTONIX) TAB PO SCH (10:02)
--- NOTE | 2020-07-20 11:19 | Physical Therapy Daily Note ---
PT Daily Note-Current Subjective Agreeable to PT. Reports he is stiff from not doing much. Transfers SCALE: Activities may be completed with or without assistive devices. 2-Mdwyjhcsul-fkgwhkz completes the activity by him/herself with no assistance from a helper. 5-Set-up or Clean-up Assistance-helper sets up or cleans up; patient completes activity. [place] assists only prior to or following the activity. 4-Supervision or Touching Assistance-helper provides verbal cues and/or touching/steadying and/or contact guard assistance as patient completes activity. Assistance may be provided throughout the activity or intermittently. 3-Partial/Moderate Assistance-helper does LESS THAN HALF the effort. [place] lifts, holds or supports trunk or limbs, but provides less than half the effort. 2-Substantial/Maximal Assistance-helper does MORE THAN HALF the effort. [place] lifts or holds trunk or limbs and provides more than half the effort. 8-Wmpzvwqgi-pecaaf does ALL the effort. Patient does none of the effort to complete the activity. Or, the assistance of 2 or more helpers is required for the patient to complete the activity. If activity was not attempted, code reason: 7-Patient Refused. 9-Not Applicable-not attempted and the patient did not perform the activity before the current illness, exacerbation or injury. 10-Not Attempted due to Environmental Limitations-(lack of equipment, weather restraints, etc.). 88-Not Attempted due to Medical Conditions or Safety Concerns. Roll Left & Right (QC): 6 Sit to Lying (QC): 6 Lying to Sitting/Side of Bed(Q: 6 Sit to Stand (QC): 6 Chair/Lax-nq-Ljesu Xfer(QC): 6 Toilet Transfer (QC): 6 Gait Training Walk 10 feet (QC): 6 Walk 50 ft with 2 Turns(QC): 6 Walk 150 ft (QC): 6 Gait Assistive Device: None Pt walked in room 150-200 ft x 2 reps without AD. Monitored O2 sats and they remained 95-96 % throughout treatment. Exercises Seated Therapy Exercises: Ankle pumps, Long arc quads, Hip flexion Seated Reps: 15 PT Usp Goals Material Stress Tester Goals PT Usp Goals Time Frame: Jul 23, 2020 PT Plan Problem List Problem List: Activity Tolerance, Functional Strength, Safety Treatment/Plan Treatment Plan: Continue Plan of Care Treatment Plan: Safety Treatment Duration: Jul 23, 2020 Frequency: 5 times per week Estimated Hrs Per Day: .25 hour per day Patient and/or Family Agrees t: Yes Safety Risks/Education Patient Education: Safety Issues Teaching Recipient: Patient Teaching Methods: Discussion Response to Teaching: Verbalize Understanding Time/GCodes Time In: 1045 Time Out: 1110 Total Billed Treatment Time: 25 Total Billed Treatment visit GT 15 EX 10 MICHAEL TORRES PT Jul 20, 2020 11:19
[2020-07-20] MEDS ORDERED: PANT40TA52 PO (12:22)
[2020-07-20] MEDS ORDERED: METO-333 PO (12:22)
[2020-07-20] MEDS ORDERED: DEXA6TAB PO (12:22)
[2020-07-20] MEDS ORDERED: ASPI81TA64 PO (12:22)
--- NOTE | 2020-07-20 12:23 | Discharge Summary ---
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 Tachycardia and elevated lactic acid required aggressive IVF to resolve. Cardiology consulted and placed on metoprolol. Overall he remained stable and did not require O2 supplement. Patient was deemed stable for DC. Labs and Pending Lab Test: Laboratory Tests 07/20/20 05:35: White Blood Count 13.0H, Red Blood Count 4.99, Hemoglobin 14.6, Hematocrit 45, Mean Corpuscular Volume 90, Mean Corpuscular Hemoglobin 29, Mean Corpuscular Hemoglobin Concent 33, Red Cell Distribution Width 12.8, Platelet Count 180, Mean Platelet Volume 11.1, Immature Granulocyte % (Auto) 1, Neutrophils (%) (Auto) 74, Lymphocytes (%) (Auto) 19, Monocytes (%) (Auto) 7, Eosinophils (%) (Auto) 0, Basophils (%) (Auto) 0, Neutrophils # (Auto) 9.6H, Lymphocytes # (Au to) 2.4, Monocytes # (Auto) 0.9, Eosinophils # (Auto) 0.0, Basophils # (Auto) 0.0, Immature Granulocyte # (Auto) 0.1, Sodium Level 138, Potassium Level 4.0, Chloride Level 106, Carbon Dioxide Level 23, Anion Gap 9, Blood Urea Nitrogen 11, Creatinine 0.79, Estimat Glomerular Filtration Rate > 60, BUN/Creatinine Ratio 14, Glucose Level 89, Calcium Level 8.6, Corrected Calcium 9.0, Total Bilirubin 0.4, Aspartate Amino Transf (AST/SGOT) 14, Alanine Aminotransferase (ALT/SGPT) 25, Alkaline Phosphatase 50, Total Protein 5.8L, Albumin 3.5 Microbiology 07/17/20 Influenza Types A,B Antigen (JAMIE) - Final, Complete 07/16/20 Blood Culture - Preliminary, Resulted No growth Home Meds Active Reported Advair 250-50 Diskus (Fluticasone/Salmeterol) 1 Each Blst.w.dev 1 Each IH BID Spiriva (Tiotropium [place]) 1 Inh Aerp 1 Inh IH DAILY Proair Hfa (Albuterol Sulfate) 1 Puff Puff 2 Puff IH Q4H PRN 1 PUFF = 90 MCG Assessment/Pt Instructions Dr Martínez Thursday Discharge Planning: <30 minutes discharge planning Discharge Physical Examination Vital Signs Vital Signs Date Time Temp Pulse Resp B/P (MAP) Pulse Ox O2 Delivery O2 Flow Rate FiO2 07/20/20 08:00 36.4 95 20 116/63 (80) 96 Room Air General Appearance: No Apparent Distress, WD/WN, Chronically ill, Obese Respiratory: Chest Non Tender, Lungs Clear, Normal Breath Sounds, No Accessory Muscle Use, No Respiratory Distress Cardiovascular: Regular Rate, Rhythm, No Edema, No Gallop, No JVD, No Murmur, Normal Peripheral Pulses Neurologic/Psychiatric: Alert, Oriented x3, No Motor/Sensory Deficits, Normal Mood/Affect Allergies: Coded Allergies: No Known Drug Allergies (Unverified , 09/03/18) Discharge Summary Date of Admission Jul 16, 2020 at 20:06 Date of Discharge Discharge Date: Jul 20, 2020 Admission Diagnosis Assessment: Tachycardia Elevated lactic acid refractory Wheezing COVID-19 Obesity Plan: Monitor wheezing IVF ICU Tachy Cardiology consultation Discharge Diagnosis Assessment: Tachycardia Elevated lactic acid refractory Wheezing COVID-19 Obesity Plan: Monitor wheezing IVF ICU Tachy Cardiology consultation 07/18/20: Move to 4th Monitor lung status O2 prn 07/19/20: HLIVF Lasix once DC tomorrow Home O2 eval (1) COVID-19 (2) Chest pain Status: Acute Qualifiers: Qualified Codes: R07.9 - Chest pain, unspecified (3) Tachycardia Status: Acute (4) COPD (chronic obstructive pulmonary disease) Status: Acute Qualifiers: Qualified Codes: J44.9 - Chronic obstructive pulmonary disease, unspecified (5) Chronic dyspnea Status: Acute (6) Pulmonary nodule seen on imaging study Status: Acute (7) 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
== END 2020-07-20 14:45 | disposition home or self-care (01) | DRG 871 ==
LOC: EDUNIT# 14:11 → ER FS 14:12 → ICU 20:06 → 4TH 07-18 12:09
PROVIDERS: ADMIT Internal Medicine; ATTEND Internal Medicine
DX: A41.89 Other specified sepsis (principal); U07.1 COVID-19; J12.82 Pneumonia due to coronavirus disease 2019; J44.0 Chronic obstructive pulmonary disease with (acute) lower respiratory infection; E87.2 Acidosis; J44.1 Chronic obstructive pulmonary disease with (acute) exacerbation; G89.29 Other chronic pain; M54.9 Dorsalgia, unspecified; E83.39 Other disorders of phosphorus metabolism; E66.9 Obesity, unspecified; G47.39 Other sleep apnea; I45.10 Unspecified right bundle-branch block; Z87.891 Personal history of nicotine dependence; Z68.39 Body mass index [BMI] 39.0-39.9, adult
CPT/HCPCS: 36415; 71045; 71275; 80048; 80053; 81000; 83605; 83735; 84100; 84145; 84484; 85007; 85025; 85027; 85379; 85610; 85730; 86141; 87040; 87081; 87804; 93005; 93041; 93306; 94640; 94760; 94761

== ENCOUNTER → 2020-07-27 | Outpatient (CLI) | payer BC ==
[~2020-07-27] MED LIST changes: +ASPI81TA64 PO; +DEXA6TAB PO; +METO-333 PO; +PANT40TA52 PO; +TIOT18CA2 IH
--- NOTE | 2020-07-27 10:54 | Diagnostic Imaging Report ---
EXAMINATION: CT Chest without contrast. TECHNIQUE: Multiple contiguous axial images were obtained through the chest without the use of intravenous contrast. All CT scans use one or more of the following dose optimizing techniques: automated exposure control, MA and/or KvP adjustment based on a patient size and exam type, or iterative reconstruction. HISTORY: Follow-up lung nodule. Shortness of breath. COMPARISON: 07/16/2020. FINDINGS: The heart size is within normal limits. No pericardial effusion is present. There is no mediastinal, hilar, or axillary lymphadenopathy. Stable nodule is seen in the right upper lobe measuring 0.8 cm. No new pulmonary nodules are seen. There are no focal areas of consolidation. No central endobronchial obstructing lesions are identified. There is no pleural effusion or pneumothorax. The osseous structures demonstrate no acute abnormalities. Limited views of the upper abdominal structures demonstrate no acute abnormalities. Both adrenal glands are unremarkable. IMPRESSION: 1. Stable nodule in the right upper lobe measuring 0.8 cm. No new pulmonary nodules. Recommend follow-up chest CT in 12 months to ensure stability. Dictated by: Dictated on workstation # [id number]
== END ==
LOC: RAD FS 09:57
PROVIDERS: ATTEND Nurse Practitioner Family
DX: R91.1 Solitary pulmonary nodule (principal); R06.02 Shortness of breath
CPT/HCPCS: 71250

== ENCOUNTER 2020-11-20 12:56 | Emergency (ER) | payer BC ==
[~2020-11-20] VITALS: Ht 180.3 cm; Wt 132.2 kg
[2020-11-20 13:43] LABS: EOSINOPHILS % (AUTO) 2 % (0-10); HEMATOCRIT 46 % (40-54); HEMOGLOBIN 15.4 G/DL (13.3-17.7); LYMPHOCYTES % (AUTO) 24 % (12-44); MEAN CORPUSCULAR HEMOGLOBIN 30 PG (25-34); MEAN CORPUSCULAR HGB CONC 33 G/DL (32-36); MEAN CORPUSCULAR VOLUME 90 FL (80-99); MEAN PLATELET VOLUME 10.5 FL (7.4-10.4); MONOCYTES % (AUTO) 6 % (0-12); NEUTROPHILS % (AUTO) 67 % (42-75); PLATELET COUNT 296 10^3/uL (130-400); WHITE BLOOD COUNT 7.3 10^3/uL (4.3-11.0)
[2020-11-20 13:44] LABS: BASOPHILS % (AUTO) 1 % (0-10); EOSINOPHILS # (AUTO) 0.2 10^3/uL (0.0-0.3); LYMPHOCYTES # (AUTO) 1.8 X 10^3 (1.0-4.0); MONOCYTES # (AUTO) 0.4 X 10^3 (0.0-1.0); NEUTROPHILS # (AUTO) 4.9 X 10^3 (1.8-7.8)
[2020-11-20] MEDS ORDERED: ORPHENADRINE 60 MG/2 ML (NORFLEX) AMP (ED ONLY) IVP STA (13:49)
[2020-11-20] MEDS ORDERED: methylPREDNISolone 125 MG (Solu-MEDROL) VIAL IVP STA (13:49)
[2020-11-20] MEDS ORDERED: fentaNYL INJ 100 MCG/2 ML AMP IVP STA (13:49)
[2020-11-20] MEDS ORDERED: NS IV 1000 ML 1,000 ML IV STA (14:02)
[2020-11-20 14:05] LABS: CHLORIDE 107 MMOL/L (98-107); INR 0.9 (0.8-1.4); POTASSIUM 4.2 MMOL/L (3.6-5.0); PROTHROMBIN TIME PATIENT 12.5 SEC (12.2-14.7); SODIUM 142 MMOL/L (135-145)
[2020-11-20 14:06] LABS: ALANINE AMINOTRANSFERASE 31 U/L (0-55); ALBUMIN 4.2 GM/DL (3.2-4.5); ALKALINE PHOSPHATASE 78 U/L (40-136); BILIRUBIN,TOTAL 0.4 MG/DL (0.1-1.0); BUN/CREATININE RATIO 13; CALCIUM 9.4 MG/DL (8.5-10.1); CARBON DIOXIDE 25 MMOL/L (21-32); CREATININE SERUM 1.22 MG/DL (0.60-1.30); GFR ESTIMATED > 60; GLUCOSE 116 MG/DL (70-105); MAGNESIUM 2.2 MG/DL (1.6-2.4); TOTAL PROTEIN 6.9 GM/DL (6.4-8.2)
--- NOTE | 2020-11-20 14:27 | ED General ---
General Chief Complaint: Back Problems Stated Complaint: RT BACK/LUNG PAIN Nursing Triage Note: PT C/O RIGHT UPPER BACK PAIN AND SOB THAT STARTED LAST WEEKEND. PT WAS SENT TO ED FROM [facility] FOR POSSIBLE PULMONARY FIBROSIS PER XRAY TAKEN AT CLINIC. Source of Information: Patient History of Present Illness Date Seen by Provider: Nov 20, 2020 Time Seen by Provider: 12:58 Initial Comments 55 yo male presenting with right lower posterior chest pain that wraps around his side. He reports this started last weekend but has continued to worsen. He was seen today by provider with [facility] and had Chest xray. They told him he has pulmonary fibrosis and that he needs to go to ED for CT scan. He has sharp stabbing chest pains to the right lower back that wrap around his chest. He denies fever, chills, trauma to chest wall. He has been more short of breath lately. He has a history of COPD and uses inhalers and breathing treatments but they are not helping his pain. He is not coughing more than usual. He feels pain as though someone kicked them with sharp end of a pair of boots. Timing/Duration: 1 Week Severity: Severe Modifying Factors: worse with Movement Associated Systoms: Chest Pain (right sided that wraps around chest), Cough (chronic and no worse than usual); No Diaphoresis, No Fever/Chills, No Headaches, No Loss of Appetite, No Malaise, No Nausea/Vomiting, No Rash, No Seizure; Shortness of Air (chronic); No Syncope, No Weakness Allergies and Home Medications Allergies Coded Allergies: No Known Drug Allergies (Unverified , 09/03/18) Home Medications Albuterol Sulfate 1 Puff Puff, 2 PUFF IH Q4H PRN for SHORTNESS OF BREATH, (Reported) 1 PUFF = 90 MCG Aspirin 81 Mg Tab.chew, 81 MG PO DAILY Prescribed by: ODETTE NUNES on 07/20/20 1222 Baclofen 10 Mg Tablet, 10 MG PO TID PRN for MUSCLE SPASMS Prescribed by: JENNIFER SAXENA on 11/20/20 1538 Dexamethasone 6 Mg Tablet, 6 MG PO DAILY Prescribed by: ODETTE NUNES on 07/20/20 1222 Fluticasone/Salmeterol 1 Each Blst.w.dev, 1 EACH IH BID, (Reported) Hydrocodone/Acetaminophen 1 Each Tablet, 1 TAB PO Q4H PRN for PAIN-SEVERE (8-10) Prescribed by: JENNIFER SAXENA on 11/20/20 1539 Metoprolol Tartrate 25 Mg Tablet, 25 MG PO BID Prescribed by: ODETTE NUNES on 07/20/20 1222 Pantoprazole Sodium 40 Mg Tablet.dr, 40 MG PO DAILY Prescribed by: ODETTE NUNES on 07/20/20 1222 Prednisone 20 Mg Tab, 40 MG PO DAILY Prescribed by: JENNIFER SAXENA on 11/20/20 1538 Tiotropium Mcalpin 1 Inh Aerp, 1 INH IH DAILY, (Reported) Patient Home Medication List Home Medication List Reviewed: Yes Review of Systems Review of Systems Constitutional: No chills, No fever EENTM: no symptoms reported Respiratory: see HPI Cardiovascular: no symptoms reported Gastrointestinal: no symptoms reported Genitourinary: no symptoms reported Musculoskeletal: no symptoms reported Skin: No change in color Psychiatric/Neurological: Anxiety Hematologic/Lymphatic: Denies Blood Clots, Denies Easy Bleeding, Denies Easy Bruising Past Gvoykpu-Mdrcqc-Fwejhb Hx Patient Social History Tobacco Use?: No Substance use?: No Alcohol Use?: No Immunizations Up To Date Tetanus Booster (TDap): Unknown PED Vaccines UTD: Yes Seasonal Allergies Seasonal Allergies: No Past Medical History Surgeries: Yes ( LEFT MIDDLE FINGER SURGERY) Orthopedic Respiratory: Yes COPD Cardiac: No Neurological: No Genitourinary: No Gastrointestinal: Yes Ulcer Musculoskeletal: Yes Chronic Back Pain, Fractures Endocrine: No HEENT: No Cancer: No Psychosocial: No Integumentary: No Blood Disorders: No Physical Exam Vital Signs Vital Signs - First Documented 11/20/20 13:16 Temp 36.4 Pulse 100 Resp 22 B/P (MAP) 129/61 (83) Pulse Ox 96 O2 Delivery Room Air Capillary Refill : Less Than 3 Seconds Height, Weight, BMI Height: 5'11.00" Weight: 270lbs. oz. 122.087482es; 40.00 BMI Method:Stated General Appearance: No Apparent Distress, WD/WN HEENT: PERRL/EOMI, Pharynx Normal Neck: Full Range of Motion, Normal Inspection, Non Tender, Supple Respiratory: Lungs Clear, No Accessory Muscle Use, No Respiratory Distress; No Crackles; Decreased Breath Sounds; No Rales; Other (tender to palpation of right chest wall posterior ribs and wraps around to side. Worse with deep breaths as well) Cardiovascular: Regular Rate, Rhythm, Normal Peripheral Pulses Extremity: Normal Capillary Refill, Normal Inspection, No Calf Tenderness, No Pedal Edema Neurologic/Psychiatric: Alert, Oriented x3 Skin: Normal Color, Warm/Dry Progress/Results/Core Measures Suspected Sepsis SIRS Temperature: Pulse: 100 Respiratory Rate: 22 Laboratory Tests 11/20/20 13:15: White Blood Count 7.3 Blood Pressure 129 /61 Mean: 83 Laboratory Tests 11/20/20 13:15: Creatinine 1.22, INR Comment 0.9, Platelet Count 296, Total Bilirubin 0.4 Results/Orders Lab Results Laboratory Tests Test 11/20/20 13:15 Range/Units White Blood Count 7.3 4.3-11.0 10^3/uL Red Blood Count 5.17 4.35-5.85 10^6/uL Hemoglobin 15.4 13.3-17.7 G/DL Hematocrit 46 40-54 % Mean Corpuscular Volume 90 80-99 FL Mean Corpuscular Hemoglobin 30 25-34 PG Mean Corpuscular Hemoglobin Concent 33 32-36 G/DL Red Cell Distribution Width 12.7 10.0-14.5 % Platelet Count 296 130-400 10^3/uL Mean Platelet Volume 10.5 H 7.4-10.4 FL Immature Granulocyte % (Auto) 0 % Neutrophils (%) (Auto) 67 42-75 % Lymphocytes (%) (Auto) 24 12-44 % Monocytes (%) (Auto) 6 0-12 % Eosinophils (%) (Auto) 2 0-10 % Basophils (%) (Auto) 1 0-10 % Neutrophils # (Auto) 4.9 1.8-7.8 X 10^3 Lymphocytes # (Auto) 1.8 1.0-4.0 X 10^3 Monocytes # (Auto) 0.4 0.0-1.0 X 10^3 Eosinophils # (Auto) 0.2 0.0-0.3 10^3/uL Basophils # (Auto) 0.0 0.0-0.1 10^3/uL Immature Granulocyte # (Auto) 0.0 0.0-0.1 10^3/uL Prothrombin Time 12.5 12.2-14.7 SEC INR Comment 0.9 0.8-1.4 Activated Partial Thromboplast Time 32 24-35 SEC Sodium Level 142 135-145 MMOL/L Potassium Level 4.2 3.6-5.0 MMOL/L Chloride Level 107 98-107 MMOL/L Carbon Dioxide Level 25 21-32 MMOL/L Anion Gap 10 5-14 MMOL/L Blood Urea Nitrogen 16 7-18 MG/DL Creatinine 1.22 0.60-1.30 MG/DL Estimat Glomerular Filtration Rate > 60 BUN/Creatinine Ratio 13 Glucose Level 116 H 70-105 MG/DL Calcium Level 9.4 8.5-10.1 MG/DL Corrected Calcium 9.2 8.5-10.1 MG/DL Magnesium Level 2.2 1.6-2.4 MG/DL Total Bilirubin 0.4 0.1-1.0 MG/DL Aspartate Amino Transf (AST/SGOT) 26 5-34 U/L Alanine Aminotransferase (ALT/SGPT) 31 0-55 U/L Alkaline Phosphatase 78 40-136 U/L Troponin I < 0.30 <0.30 NG/ML Pro-B-Type Natriuretic Peptide 68.8 <75.0 PG/ML Total Protein 6.9 6.4-8.2 GM/DL Albumin 4.2 3.2-4.5 GM/DL My Orders Orders - JENNIFER SAXENA MD Cbc With Automated Diff (11/20/20 13:34) Magnesium (11/20/20 13:34) Ekg Tracing (11/20/20 13:34) Comprehensive Metabolic Panel (11/20/20 13:34) Protime With Inr (11/20/20 13:34) Partial Thromboplastin Time (11/20/20 13:34) O2 (11/20/20 13:34) Monitor-Rhythm Ecg Trace Only (11/20/20 13:34) Ed Iv/Invasive Line Start (11/20/20 13:34) Troponin I Fs (11/20/20 13:34) Probnp Fs (11/20/20 13:34) Ct Chest W (11/20/20 13:34) Fentanyl Inj (Sublimaze Injection) (11/20/20 13:49) Orphenadrine Inj (Ed Only) (Norflex Inje (11/20/20 13:49) Methylprednisolone Sod Succ (Solu-Medrol (11/20/20 13:49) Ns Iv 1000 Ml (Sodium Chloride 0.9%) (11/20/20 14:02) Iohexol Injection (Omnipaque 350 Mg/Ml 1 (11/20/20 14:30) Received Contrast (Hold Metformin- Contr (11/20/20 14:30) Sodium Chloride Flush (Catheter Flush Sy (11/20/20 14:30) Ns (Ivpb) (Sodium Chloride 0.9% Ivpb Bag (11/20/20 14:30) Vital Signs/I&O 11/20/20 11/20/20 13:16 15:48 Temp 36.4 36.4 Pulse 100 76 Resp 22 20 B/P (MAP) 129/61 (83) 142/68 (83) Pulse Ox 96 96 O2 Delivery Room Air Room Air Capillary Refill : Less Than 3 Seconds Blood Pressure Mean: 83 Progress Note #1: Progress Note Check labs and CT chest to evaluate lungs and ribs to look for blood clot or rib fracture or reason he has increased pain on right side. Try Fentanyl, Solumedrol, Norflex with IVF for pain. Differential diagnosis includes pleurisy, rib fracture, lung mass, effusion, pulmonary embolus Progress Note #2: Progress Note labs are stable without acute significant abnormality. Negative cardiac enzymes. CT scan of chest shows stable findings of pulmonary nodules without acute significant findings to account for his pain to right side of chest. Will treat for pain and inflammation. Have pt check back with clinic and may need to see Pulmonology as well. Diagnostic Imaging Diagonstic Imaging: CT Plain Films/CT/US/NM/MRI: chest Comments NAME: [facility] REC#: [id number] PT STATUS: REG ER : 1965 PHYSICIAN: JENNIFER SAXENA MD ADMIT DATE: 11/20/20/ER FS Draft Date of Exam:11/20/20 CT CHEST W PROCEDURE: CT chest with contrast only. TECHNIQUE: Multiple contiguous axial images were obtained through the chest after administration of intravenous contrast. Auto Exposure Controls were utilized during the CT exam to meet ALARA standards for radiation dose reduction. INDICATION: Right-sided chest pain. COMPARISON: Exam compared with chest CT from 07/27/2020. FINDINGS: No acute or unhealed chest wall fracture deformity. There are some old healed rib deformities on the right, chronic. Sternum, manubrium, and shoulders are nonacute. There are degenerative changes to the thoracic spine, chronic. No acute spinal pathology. Stable tiny elongated circumscribed nodule of 7 mm in the right lung is unchanged, likely intraparenchymal lymph node. No new or suspicious lung mass. No thoracic adenopathy. No pleural or pericardial effusion. The visualized upper abdomen showing no acute-appearing abnormality. There are coronary atherosclerotic vascular calcifications, most notably along the LAD but also in the right coronary. IMPRESSION: No acute-appearing abnormality or findings to explain right chest pain. Stable 7 mm benign-appearing right lung nodule. No acute vascular pathology or chest wall lesion. No pneumonia or failure. Dictated on workstation # [id number] Dict: 11/20/20 1459 Trans: 11/20/20 1509 [id number] [id number] Interpreted by: GALINDO NEAL Electronically signed by: Reviewed: Reviewed by Me Departure Impression Primary Impression: Right-sided chest pain Additional Impressions: Right-sided chest wall pain Pleuritic chest pain Pulmonary nodule seen on imaging study Disposition: 01 HOME, SELF-CARE Condition: Stable Departure-Patient Inst. Decision time for Depature: 15:35 Referrals: [facility] (PCP/Family) Primary Care Physician Patient Instructions: Opioids for Short-Term Treatment of Pain ED, Chest Pain, Adult ED, Pulmonary Nodule, Pleuritic Chest Pain (DC) Add. Discharge Instructions: Try the medicine for pain and take the steroids to help with inflammation and pain. Follow up with primary provider about your symptoms and if not improving you may need to see [facility] [employer] [facility] for further evaluation/treatment. All discharge instructions reviewed with patient and/or family. Voiced understanding. Scripts Baclofen (Baclofen) 10 Mg Tablet 10 MG PO TID PRN for MUSCLE SPASMS for 10 Days, #30 TAB 0 Refills Prov: JENNIFER SAXENA MD 11/20/20 Hydrocodone/Acetaminophen (Hydrocodone-Acetamin 5-325 mg) 1 Each Tablet 1 TAB PO Q4H PRN for PAIN-SEVERE (8-10) for 3 Days, #18 TAB 0 Refills Prov: JENNIFER SAXENA MD 11/20/20 Prednisone (Prednisone) 20 Mg Tab 40 MG PO DAILY for 5 Days, #10 TAB 0 Refills Prov: JENNIFER SAXENA MD 11/20/20 JENNIFER SAXENA MD Nov 20, 2020 14:27
[2020-11-20] MEDS ORDERED: HOLD METFORMIN - RECEIVED CONTRAST 20 ML VIAL IV SCH (14:30)
[2020-11-20] MEDS ORDERED: CATHETER FLUSH 10 ML SYR IV PRN (14:30)
[2020-11-20] MEDS ORDERED: IOHEXOL 350 MG/ML 100 ML (OMNIPAQUE 350) VIAL IV ONE (14:30)
[2020-11-20] MEDS ORDERED: NS 100 ML (IVPB) BAG IV ONE (14:30)
--- NOTE | 2020-11-20 15:09 | Diagnostic Imaging Report ---
PROCEDURE: CT chest with contrast only. TECHNIQUE: Multiple contiguous axial images were obtained through the chest after administration of intravenous contrast. Auto Exposure Controls were utilized during the CT exam to meet ALARA standards for radiation dose reduction. INDICATION: Right-sided chest pain. COMPARISON: Exam compared with chest CT from 07/27/2020. FINDINGS: No acute or unhealed chest wall fracture deformity. There are some old healed rib deformities on the right, chronic. Sternum, manubrium, and shoulders are nonacute. There are degenerative changes to the thoracic spine, chronic. No acute spinal pathology. Stable tiny elongated circumscribed nodule of 7 mm in the right lung is unchanged, likely intraparenchymal lymph node. No new or suspicious lung mass. No thoracic adenopathy. No pleural or pericardial effusion. The visualized upper abdomen showing no acute-appearing abnormality. There are coronary atherosclerotic vascular calcifications, most notably along the LAD but also in the right coronary. IMPRESSION: No acute-appearing abnormality or findings to explain right chest pain. Stable 7 mm benign-appearing right lung nodule. No acute vascular pathology or chest wall lesion. No pneumonia or failure. Dictated by: Dictated on workstation # [id number]
[2020-11-20] MEDS ORDERED: BACL10TA PO (15:38)
[2020-11-20] MEDS ORDERED: ACHD5005 PO (15:38)
[2020-11-20] MEDS ORDERED: PRD20T PO (15:38)
[2020-11-20 15:48] VITALS: BP 142/68
== END 2020-11-20 15:48 | disposition home or self-care (01) ==
LOC: EDUNIT# 12:56 → ER FS 12:59
DX: R07.89 Other chest pain (principal); R07.81 Pleurodynia; R91.1 Solitary pulmonary nodule; J44.9 Chronic obstructive pulmonary disease, unspecified; G89.29 Other chronic pain; M54.9 Dorsalgia, unspecified; Z79.82 Long term (current) use of aspirin; Z79.891 Long term (current) use of opiate analgesic; Z79.899 Other long term (current) drug therapy
CPT/HCPCS: 36415; 71260; 80053; 83735; 83880; 84484; 85025; 85610; 85730; 93041

== ENCOUNTER → 2021-01-15 | Outpatient (CLI) | payer BC ==
[~2021-01-15] MED LIST changes: +ACHD5005 PO; +BACL10TA PO; +PRD20T PO; +RT-ALBUTEROL SULF 2.5 MG/3 ML PRE-MIX VIAL INH ONE
== END ==
LOC: RT 08:00
PROVIDERS: ATTEND Nurse Practitioner Family
DX: G47.33 Obstructive sleep apnea (adult) (pediatric) (principal)
CPT/HCPCS: 94060

== ENCOUNTER → 2021-08-08 | Outpatient (CLI) | payer BC ==
[~2021-08-08] MED LIST changes: +CYCL10TA25 PO; -CYCL10TA9 PO; -RT-ALBUTEROL SULF 2.5 MG/3 ML PRE-MIX VIAL INH ONE
--- NOTE | 2021-08-08 14:42 | Diagnostic Imaging Report ---
EXAMINATION: CT chest without contrast. TECHNIQUE: Multiple contiguous axial images were obtained through the chest without the use of intravenous contrast. All CT scans use one or more of the following dose optimizing techniques: automated exposure control, MA and/or KvP adjustment based on patient size and exam type or iterative reconstruction. HISTORY: COPD COMPARISON: 11/20/2020 FINDINGS: Thyroid: The thyroid is normal. Mediastinum: Heart size is normal without significant pericardial effusion. The aorta is normal in caliber. No suspicious lymphadenopathy. Lungs and airways: There are mild background emphysematous changes greatest within the lung apices and lung periphery. No pleural effusion or pneumothorax. No new consolidation. Evaluation of the chest is somewhat limited secondary to patient respiratory motion. Stable 0.7 x 0.6 cm right middle lobe pulmonary nodule. The airways are normal. Upper abdomen: The subphrenic structures are normal. Musculoskeletal: Degenerative changes of the spine without suspicious osseous lesion or acute compression fracture. IMPRESSION: 1. Stable findings of COPD without other acute abnormality in the chest. 2. Stable 0.7 cm right middle lobe pulmonary nodule. Consider optional CT chest followup in 6-12 months. Dictated by: Dictated on workstation # [id number]
== END ==
LOC: RAD FS 12:34
PROVIDERS: ATTEND Nurse Practitioner Family
DX: J44.9 Chronic obstructive pulmonary disease, unspecified (principal); R91.8 Other nonspecific abnormal finding of lung field
CPT/HCPCS: 71250

== ENCOUNTER → 2021-12-05 | Outpatient (CLI) | payer BC ==
--- NOTE | 2021-12-05 10:13 | Diagnostic Imaging Report ---
INDICATION: L97.512 ulcer of the foot. COMPARISON: None. FINDINGS: 3 views of the right foot demonstrate no acute fracture or dislocation. There are no focal osseous lesions. Joint spaces are well maintained. No radiopaque foreign bodies are seen. IMPRESSION: No acute fractures or dislocations of the right foot. Dictated by: Dictated on workstation # [id number]
== END ==
LOC: RAD FS 09:11
PROVIDERS: ATTEND Nurse Practitioner Family
DX: L97.512 Non-pressure chronic ulcer of other part of right foot with fat layer exposed (principal); M54.50 Low back pain, unspecified
CPT/HCPCS: 73630

== ENCOUNTER → 2022-02-11 | Outpatient (CLI) | payer BC | LOC: CARDFS 09:04 | PROVIDERS: ATTEND Nurse Practitioner Family | DX: I51.7 Cardiomegaly (principal) | CPT/HCPCS: 93306 ==

== ENCOUNTER 2022-04-16 19:58 | Emergency (ER) | payer BC ==
[~2022-04-16] VITALS: Ht 180.3 cm; Wt 131.5 kg
[~2022-04-16 19:58] MED LIST changes: +ALBU8.5H6 IH; -RT-ALBUINH IH
[2022-04-16] MEDS ORDERED: RT-ALBUTEROL/IPRATROPIUM 3 ML (DUONEB) VIAL INH STA (20:17)
[2022-04-16] MEDS ORDERED: NS IV 1000 ML 1,000 ML IV STA (20:17)
[2022-04-16 20:26] LABS: BASOPHILS # (AUTO) 0.1 10^3/uL (0.0-0.1); BASOPHILS % (AUTO) 0 % (0-10); EOSINOPHILS # (AUTO) 0.2 10^3/uL (0.0-0.3); EOSINOPHILS % (AUTO) 2 % (0-10); HEMATOCRIT 47 % (40-54); HEMOGLOBIN 15.5 g/dL (13.3-17.7); LYMPHOCYTES # (AUTO) 2.2 10^3/uL (1.0-4.0); LYMPHOCYTES % (AUTO) 20 % (12-44); MEAN CORPUSCULAR HEMOGLOBIN 29 pg (25-34); MEAN CORPUSCULAR HGB CONC 33 g/dL (32-36); MEAN CORPUSCULAR VOLUME 87 fL (80-99); MEAN PLATELET VOLUME 10.3 fL (9.0-12.2); MONOCYTES # (AUTO) 0.6 10^3/uL (0.0-1.0); MONOCYTES % (AUTO) 5 % (0-12); NEUTROPHILS # (AUTO) 8.1 10^3/uL (1.8-7.8); NEUTROPHILS % (AUTO) 72 % (42-75); PLATELET COUNT 339 10^3/uL (130-400); WHITE BLOOD COUNT 11.2 10^3/uL (4.3-11.0)
[2022-04-16 20:51] LABS: BILIRUBIN,TOTAL 0.4 MG/DL (0.1-1.0); CALCIUM 9.5 MG/DL (8.5-10.1); CREATININE SERUM 1.14 MG/DL (0.60-1.30); POTASSIUM 4.3 MMOL/L (3.6-5.0)
--- NOTE | 2022-04-16 20:54 | ED General ---
General Chief Complaint: Dizziness/Syncope Stated Complaint: DIZZY Nursing Triage Note: PT ARRIVED BY PRIVATE VEHICLE WITH CHIEF COMLAINT OF SOB AND DIZZINESS. PT WAS PRESENT WITH AND DAUGHTER ON ARRIVAL. PT WAS IN THE WHEELCHAIR IN THE WAITING ROOM AND THIS RN WHEELED PT BACK TO ROOM 1 WHERE PT WAS ASSISTED INTO THE BED. PT'S VITALS WERE TAKEN, EKG WAS OBTAINED, DAMAGE INSIDE ADJUSTER, IV WAS STARTED WITH BLOOD DRAW AND COVID/FLU SWAB OBTAINED. WHEN ASKING PT WHEN ONSET WAS, IT WAS COUPLE DAYS AGO WITH NOT BEING ABLE TO FOCUS OR KEEP HIS BALANCE. STATED DIZZINESS AND SOB STARTED 45 MINUTES AGO. REPORT WAS GIVEN TO PROVIDER. Source of Information: Patient History of Present Illness Date Seen by Provider: Apr 16, 2022 Time Seen by Provider: 20:07 Initial Comments 56-year-old male presenting with complaints of increased shortness of breath and dizziness this evening. He states this has been chronic for him but felt that it was worse in the last 45 minutes. He gets dizzy and lightheaded and the room spins when he gets up to move. He denies having chest pain. He has chronic cou gh. He has had no fever or chills. He has had ill contacts as he works at [employer] and there have been several people in the community as well as the college that have tested positive for influenza A and COVID. he has COPD and pulmonary fibrosis that he sees a pulmonolgy provider in [place] through [facility]. He is having trouble focusing, especially when he gets up and is moving around. 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) Severity: Severe Modifying Factors: worse with Movement Associated Systoms: No Chest Pain; Cough; No Diaphoresis, No Fever/Chills, No Headaches, No Loss of Appetite; Malaise; No Nausea/Vomiting, No Rash, No Seizure; Shortness of Air; No Syncope; Weakness Allergies and Home Medications Allergies Coded Allergies: No Known Drug Allergies (Unverified , 09/03/18) Patient Home Medication List Home Medication List Reviewed: Yes Albuterol Sulfate (Ventolin Hfa) 1 Puff Puff, 2 PUFF IH Q4H PRN for SHORTNESS OF BREATH, (Reported) Entered as Reported by: TIMO MORENO on 07/17/20 1340 Aspirin (Children's Aspirin) 81 Mg Tab.chew, 81 MG PO DAILY Prescribed by: ODETTE NUNES on 07/20/20 1222 Baclofen (Baclofen) 10 Mg Tablet, 10 MG PO TID PRN for MUSCLE SPASMS Prescribed by: JENNIFER SAXENA on 11/20/20 1538 Dexamethasone (Dexamethasone) 6 Mg Tablet, 6 MG PO DAILY Prescribed by: ODETTE NUNES on 07/20/20 1222 Fluticasone/Salmeterol (Advair 250-50 Diskus) 1 Each Blst.w.dev, 1 EACH IH BID, (Reported) Entered as Reported by: TIMO MORENO on 07/17/20 1340 Hydrocodone/Acetaminophen (Hydrocodone-Acetamin 5-325 mg) 1 Each Tablet, 1 TAB PO Q4H PRN for PAIN-SEVERE (8-10) Prescribed by: JENNIFER SAXENA on 11/20/20 1539 Meclizine HCl (Meclizine HCl) 25 Mg Tablet, 25 MG PO Q6H PRN for VERTIGO Prescribed by: JENNIFER SAXENA on 04/16/22 2235 Metoprolol Tartrate (Metoprolol Tartrate) 25 Mg Tablet, 25 MG PO BID Prescribed by: ODETTE NUNES on 07/20/20 1222 Pantoprazole Sodium (Pantoprazole Sodium) 40 Mg Tablet.dr, 40 MG PO DAILY Prescribed by: ODETTE NUNES on 07/20/20 1222 Prednisone (Prednisone) 20 Mg Tab, 40 MG PO DAILY Prescribed by: JENNIFER SAXENA on 11/20/20 1538 Tiotropium [place] (Spiriva) 1 Inh Aerp, 1 INH IH DAILY, (Reported) Entered as Reported by: TIMO MORENO on 07/17/20 1340 Review of Systems Review of Systems Constitutional: No chills; dizziness (with movement and activity); No fever EENTM: nose congestion Respiratory: cough, dyspnea on exertion, short of breath; No stridor, No wheezing Cardiovascular: No chest pain Gastrointestinal: no symptoms reported Genitourinary: no symptoms reported Musculoskeletal: no symptoms reported Skin: No rash Psychiatric/Neurological: Denies Headache Hematologic/Lymphatic: Denies Blood Clots Past Vspyqyc-Pmnpiq-Ebldod Hx Patient Social History Tobacco Use?: No Smoking Status: Never a Smoker Substance use?: No Alcohol Use?: No Pt feels they are or have been: No Immunizations Up To Date Tetanus Booster (TDap): Unknown PED Vaccines UTD: Yes Seasonal Allergies Seasonal Allergies: No Past Medical History Surgery/Hospitalization HX: COPD, Pulmonary Fibrosis Surgeries: Yes ( LEFT MIDDLE FINGER SURGERY) Orthopedic Respiratory: Yes COPD Cardiac: No Neurological: No Genitourinary: No Gastrointestinal: Yes Ulcer Musculoskeletal: Yes Chronic Back Pain, Fractures Endocrine: No HEENT: No Cancer: No Psychosocial: No Integumentary: No Blood Disorders: No Physical Exam Vital Signs Vital Signs - First Documented 04/16/22 20:00 Temp 36.6 Pulse 96 Resp 25 B/P (MAP) 121/88 (99) Pulse Ox 95 O2 Delivery Room Air Capillary Refill : Less Than 3 Seconds Height, Weight, BMI Height: 5'11.00" Weight: 270lbs. oz. 122.407062ic; 40.00 BMI Method:Stated General Appearance: Anxious, Moderate Distress (working hard to breath), Obese HEENT: PERRL/EOMI, TMs Normal, Pharynx Normal, Moist Mucous Membranes Neck: Full Range of Motion, Normal Inspection, Non Tender, Supple Respiratory: Chest Non Tender, Lungs Clear, Accessory Muscle Use, Decreased Breath Sounds, Respiratory Distress Cardiovascular: Regular Rate, Rhythm, Normal Peripheral Pulses Gastrointestinal: Normal Bowel Sounds, No Pulsatile Mass, Non Tender, Soft Extremity: Normal Capillary Refill, Normal Inspection, No Pedal Edema Neurologic/Psychiatric: Alert, Oriented x3 Skin: Warm/Dry Focused Exam Lactate Level 04/16/22 20:10: Lactic Acid Level 1.26 Lactic Acid Level Laboratory Tests Test 04/16/22 20:10 Lactic Acid Level 1.26 MMOL/L (0.50-2.00) Progress/Results/Core Measures Suspected Sepsis SIRS Temperature: Pulse: 96 Respiratory Rate: 25 Laboratory Tests 04/16/22 20:10: White Blood Count 11.2H Blood Pressure 121 /88 Mean: 99 04/16/22 20:10: Lactic Acid Level 1.26 Laboratory Tests 04/16/22 20:10: Creatinine 1.14, Platelet Count 339, Total Bilirubin 0.4 Results/Orders Lab Results Laboratory Tests Test 04/16/22 20:10 Range/Units White Blood Count 11.2 H 4.3-11.0 10^3/uL Red Blood Count 5.34 4.30-5.52 10^6/uL Hemoglobin 15.5 13.3-17.7 g/dL Hematocrit 47 40-54 % Mean Corpuscular Volume 87 80-99 fL Mean Corpuscular Hemoglobin 29 25-34 pg Mean Corpuscular Hemoglobin Concent 33 32-36 g/dL Red Cell Distribution Width 12.9 10.0-14.5 % Platelet Count 339 130-400 10^3/uL Mean Platelet Volume 10.3 9.0-12.2 fL Immature Granulocyte % (Auto) 0 % Neutrophils (%) (Auto) 72 42-75 % Lymphocytes (%) (Auto) 20 12-44 % Monocytes (%) (Auto) 5 0-12 % Eosinophils (%) (Auto) 2 0-10 % Basophils (%) (Auto) 0 0-10 % Neutrophils # (Auto) 8.1 H 1.8-7.8 10^3/uL Lymphocytes # (Auto) 2.2 1.0-4.0 10^3/uL Monocytes # (Auto) 0.6 0.0-1.0 10^3/uL Eosinophils # (Auto) 0.2 0.0-0.3 10^3/uL Basophils # (Auto) 0.1 0.0-0.1 10^3/uL Immature Granulocyte # (Auto) 0.0 0.0-0.1 10^3/uL Sodium Level 139 135-145 MMOL/L Potassium Level 4.3 3.6-5.0 MMOL/L Chloride Level 104 98-107 MMOL/L Carbon Dioxide Level 26 21-32 MMOL/L Anion Gap 9 5-14 MMOL/L Blood Urea Nitrogen 15 7-18 MG/DL Creatinine 1.14 0.60-1.30 MG/DL Estimat Glomerular Filtration Rate 76 BUN/Creatinine Ratio 13 Glucose Level 136 H 70-105 MG/DL Lactic Acid Level 1.26 0.50-2.00 MMOL/L Calcium Level 9.5 8.5-10.1 MG/DL Corrected Calcium 9.5 8.5-10.1 MG/DL Magnesium Level 2.0 1.6-2.4 MG/DL Total Bilirubin 0.4 0.1-1.0 MG/DL Aspartate Amino Transf (AST/SGOT) 18 5-34 U/L Alanine Aminotransferase (ALT/SGPT) 25 0-55 U/L Alkaline Phosphatase 74 40-136 U/L Troponin I < 0.30 <0.30 NG/ML C-Reactive Protein 0.66 H <0.50 MG/DL Pro-B-Type Natriuretic Peptide 31.0 <125.0 PG/ML Total Protein 7.0 6.4-8.2 GM/DL Albumin 4.0 3.2-4.5 GM/DL Influenza Type A (RT-PCR) Not Detected Not Detecte Influenza Type B (RT-PCR) Not Detected Not Detecte SARS-CoV-2 RNA (RT-PCR) Not Detected Not Detecte My Orders Orders - JENNIFER SAXENA MD Cbc With Automated Diff (04/16/22 20:17) Comprehensive Metabolic Panel (04/16/22 20:17) Blood Culture (04/16/22 20:17) Chest 1 View Ap/Pa Only (04/16/22 20:17) Magnesium (04/16/22 20:17) Ekg Tracing (04/16/22 20:17) O2 (04/16/22 20:17) Ed Iv/Invasive Line Start (04/16/22 20:17) Monitor-Rhythm Ecg Trace Only (04/16/22 20:17) Crp Fs (04/16/22 20:17) Lactic Acid Analyzer (04/16/22 20:17) Covid 19 Inhouse Test (04/16/22 20:17) Ct Head Wo (04/16/22 20:17) Influenza A And B By Pcr (04/16/22 20:17) Isolation Central Supply Req (04/16/22 20:17) Ns Iv 1000 Ml (Sodium Chloride 0.9%) (04/16/22 20:17) Albuterol/Ipra Inhalation Soln (Duoneb I (04/16/22 20:17) Svn Small Volume Nebulizer (04/16/22 20:17) Troponin I Fs (04/16/22 20:21) Probnp Fs (04/16/22 20:21) Meclizine Tablet (Antivert Tablet) (04/16/22 21:44) Vital Signs/I&O 04/16/22 20:00 Temp 36.6 Pulse 96 Resp 25 B/P (MAP) 121/88 (99) Pulse Ox 95 O2 Delivery Room Air Capillary Refill : Less Than 3 Seconds Blood Pressure Mean: 99 Progress Note #1: Progress Note Check labs, nasal swab for influenza and covid. CT head with his complaint of dizziness with changing position to look for acute stroke, mass, sinusitis, bleeding. CXR to evaluate his increased shortness of breath. ECG to look for cardiac ischemia or arrhythmia. Give NS 1 L IVF bolus to see if that helps with his dizziness with position changes. Duoneb breathing treatment to try and help his shortness of breath. Progress Note #2: Progress Note Covid and Influenza swabs are negative. CXR does not show effusion or infiltrate. CT head without acute process to explain his dizziness with changing position. WBC count at upper limit of normal at 11.2 which may be stress or hydration related. Not anemic as his Hgb is 15.5. Chemistry with elevated CRP but negative Lactic acid and negative Troponin. He was having pain at site of IV so he did not receive his entire Liter of fluid. There were no signs of infiltration of the IV but with him having continued pain it was discontinued. Tests are not showing acute reason for him to be dizzy with changing position or having increased shortness of breath. Will discuss results with patient and family. could try meclizine for dizziness and possible steroid for his shortness of breath. No acute infection seen on exam or testing. Progress Note #3: Progress Note He had improved symptoms with Meclizine. [place] his breathing was more at his baseline. Will discharge to home with note for work and script for meclizine to [facility]. Encourage hydration and rest. Check with clinic or return for worsening symptoms. ECG Initial ECG Impression Date: Apr 16, 2022 Initial ECG Impression Time: 20:12 Initial ECG Rate: 96 Initial ECG Rhythm: Normal Sinus Initial ECG Comparisson: Unchanged (July 2020) Comment My independent review and interpretation his electrocardiogram shows sinus rhy thm with a heart rate of 96 bpm. NM interval 156 ms. He has a right bundle branch block. He has no acute ST elevation. QT interval 379 ms with a QTc interval 432 ms. Overall this appears similar to tracing from July 2020 Diagnostic Imaging Diagonstic Imaging: Xray Plain Films/CT/US/NM/MRI: chest Comments [facility] [place], [place] NAME: EULOGIO CALI [facility] REC#: [id number] PT STATUS: REG ER : 1965 PHYSICIAN: JENNIFER SAXENA MD ADMIT DATE: 04/16/22/ER FS Draft Date of Exam:04/16/22 CHEST 1 VIEW AP/PA ONLY INDICATION: Shortness of breath. COMPARISON: 07/18/2020. TECHNIQUE: Single radiograph of the chest dated April 16, 2022. FINDINGS: The cardiac silhouette is within normal limits in size. No significant pulmonary vascular congestion. The lungs are clear of focal pulmonary opacity. No pleural effusion. No pneumothorax. Chronic appearing lateral right-sided rib fractures noted superiorly. No acute osseous abnormality. IMPRESSION: No acute cardiopulmonary abnormality. Dictated on workstation # [id number] Dict: 04/16/222112 Trans: 04/16/222117 PJE [id number] Interpreted by: DELGADO ORELLANA MD Electronically signed by: Reviewed: Reviewed by Me Diagonstic Imaging: CT Plain Films/CT/US/NM/MRI: head Comments [facility] [place] [place] NAME: EULOGIO CALI [facility] REC#: [id number] PT STATUS: REG ER : 1965 PHYSICIAN: JENNIFER SAXENA MD ADMIT DATE: 04/16/22/ER FS Draft Date of Exam:04/16/22 CT HEAD WO INDICATION: Dizzy and light headed TECHNIQUE: Routine non contrast-enhanced axial images were obtained from the skull base to the vertex. Auto Exposure Controls were utilized during the CT exam to meet ALARA standards for radiation dose reduction COMPARISON: 09/03/2018. FINDINGS: The ventricles and cortical sulci are normal in size and contour. There is no midline shift or mass-effect. No acute intra-axial hemorrhage is seen. There are no abnormal areas of increased or decreased density to suggest acute hemorrhage or edema. No extra-axial masses or collections are present. The bony calvarium is intact. The visualized paranasal sinuses are unremarkable. The mastoid air cells are clear. IMPRESSION: No acute intracranial abnormality. No CT evidence of mass, acute infarct or intracranial hemorrhage. Dictated on workstation # [id number] Dict: 04/16/222102 Trans: 04/16/222108 [facility] [id number] Interpreted by: SINDHU PHILLIPS MD Electronically signed by: Reviewed: Reviewed by Me Departure Impression Primary Impression: Dizziness Additional Impressions: Shortness of breath Benign positional vertigo Qualified Codes: H81.10 - Benign paroxysmal vertigo, unspecified ear Disposition: HOME, SELF-CARE Condition: Stable Departure-Patient Inst. Decision time for Depature: 22:36 Referrals: RENE YU APRN (PCP) Primary Care Physician [facility] (Family) Primary Care Physician Patient Instructions: Vertigo ED, Shortness of Breath, Adult ED, Dizziness, Adult ED Add. Discharge Instructions: Take the Meclizine for the next few days to help with the dizziness and vertigo symptoms. Stay well hydrated Check with clinic if not improving or return if having worsening symptoms despite the medicine. All discharge instructions reviewed with patient and/or family. Voiced understanding. Scripts Meclizine HCl (Meclizine HCl) 25 Mg Tablet 25 MG PO Q6H PRN for VERTIGO for 7 Days, #28 TAB 0 Refills Prov: JENNIFER SAXENA MD 04/16/22 Work/School Note: Work Release Form Date Seen in the Emergency Department: Apr 16, 2022 Return to Work: Apr 21, 2022 Restrictions: No Restrictions JENNIFER SAXENA MD Apr 16, 2022 20:54
--- NOTE | 2022-04-16 21:10 | Diagnostic Imaging Report ---
INDICATION: Dizzy and light headed TECHNIQUE: Routine non contrast-enhanced axial images were obtained from the skull base to the vertex. Auto Exposure Controls were utilized during the CT exam to meet ALARA standards for radiation dose reduction COMPARISON: 09/03/2018. FINDINGS: The ventricles and cortical sulci are normal in size and contour. There is no midline shift or mass-effect. No acute intra-axial hemorrhage is seen. There are no abnormal areas of increased or decreased density to suggest acute hemorrhage or edema. No extra-axial masses or collections are present. The bony calvarium is intact. The visualized paranasal sinuses are unremarkable. The mastoid air cells are clear. IMPRESSION: No acute intracranial abnormality. No CT evidence of mass, acute infarct or intracranial hemorrhage. Dictated by: Dictated on workstation # [id number]
--- NOTE | 2022-04-16 21:20 | Diagnostic Imaging Report ---
INDICATION: Shortness of breath. COMPARISON: 07/18/2020. TECHNIQUE: Single radiograph of the chest dated April 16, 2022. FINDINGS: The cardiac silhouette is within normal limits in size. No significant pulmonary vascular congestion. The lungs are clear of focal pulmonary opacity. No pleural effusion. No pneumothorax. Chronic appearing lateral right-sided rib fractures noted superiorly. No acute osseous abnormality. IMPRESSION: No acute cardiopulmonary abnormality. Dictated by: Dictated on workstation # [id number]
[2022-04-16] MEDS ORDERED: MECLIZINE 25 MG (ANTIVERT) TAB PO STA (21:44)
[2022-04-16] MEDS ORDERED: MECL-149 PO (22:35)
[2022-04-16 22:50] VITALS: BP 109/51
== END 2022-04-16 22:50 | disposition home or self-care (01) ==
LOC: EDUNIT# 19:58 → ER FS 20:00
DX: H81.10 Benign paroxysmal vertigo, unspecified ear (principal); R06.02 Shortness of breath; Z20.822 Contact with and (suspected) exposure to COVID-19
CPT/HCPCS: 36415; 70450; 71045; 80053; 83605; 83735; 83880; 84484; 85025; 86141; 87040; 87636; 93005; 93041